=== PATIENT | female | born 1985 | race Caucasian/White ===

== ENCOUNTER 2019-09-26 12:52 | Inpatient (IN) | payer OTHER, SELFPAY ==
--- NOTE | ~2019-09-26 | XR_ITS ---
EXAMINATION: XR UGI water soluble w sbs DATE: 09/27/2019 15:54 INDICATION: Vomiting. Possible partial small bowel obstruction. TECHNIQUE: The patient drank water-soluble contrast. Conventional supine abdomen radiographs and fluo roscopic spot radiographs of the esophagus, stomach, and proximal small bowel were obtained. Addition al overhead radiographs were obtained during the transit through the small bowel. Spot fluoroscopic images of the small bowel were obtained upon contrast reaching the cecum. A total of 655 images were obtained. Fluoroscopy exposure time was 1.4 minutes. COMPARISON: None. FINDINGS: The esophagus is normal without mass or stricture. Esophageal motility is normal. There is no hiatal hernia. Postoperative changes of gastric bypass procedure with rapid passage of contrast from the eso phagus through the small gastric remnant into the Lovely limb with no evidence stricture. No extralumin al contrast extravasation. There was no gastroesophageal reflux. Transit time from the stomach to pro ximal colon was approximately 1 hour. There is normal caliber and mucosal fold pattern throughout the small bowel. Terminal ileum is normal. No tethering or abnormal mass effect observed upon the smal l bowel with real-time fluoroscopy. IMPRESSION: 1. Expected appearance post Lovely-en-Y gastric bypass procedure with no stricture at the anastomoses. 2. Normal small bowel follow-through with no obstruction. Reviewed, dictated and finalized at location A. ION CONTROL COORDINATOR IMPRESSION: 1. Expected appearance post Lovely-en-Y gastric bypass procedure with no strictur e at the anastomoses. 2. Normal small bowel follow-through with no obstruction.
[2019-09-26 13:00] VITALS: BMI 35.4
[2019-09-26 14:00] VITALS: BP 139/82; PULSE 82; RESP 14; TEMP 36.3; O2SAT 100
--- NOTE | 2019-09-26 14:20 | PM.IMHP ---
H&P: HPI History of Present Illness Chief complaint: intractable vomiting Narrative: Nava Brunson is a 34 year old female who was a direct admit from [facility]. Patient stated that she has had intractable nausea vomiting for at least 8 days. She has not traveled outside the country or been around any sick contacts. 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 Patient no longer has a gallbladder. She has had multiple kidney stones but states this feels different. She has had epigastric pain that is sharp and stabbing. It is intermittent in nature. She had been on pain medication [facility]. She was receiving IV fluids at [place]. Clear liquid diet was tried and patient continued to vomit bile. Under CT scan it showed a nonobstructing 3 mm left kidney stone and a right liver hemangioma. Patient still continued to vomit even though she was given Zofran, Pepcid, Protonix, and Reglan. Patient was also restarted back on Lexapro and the patient continued to vomit. It was felt that it would be best to hold off on giving her any more Lexapro until she is discharged. She does deal with depression and anxiety. Patient stated she is lost 7 lb in the last week due to her nausea and vomiting. She does have a history of having a gastric bypass, Lovely-en-Y at [facility] that was performed December of this year. She denies any diarrhea or fever or chills. Review of Systems Review of Systems: All systems reviewed & are unremarkable except as noted in HPI and below Constitutional: Constitutional: Reports as per HPI and Reports no additional constitutional complaints Eyes: Eyes: Reports as per HPI and Reports no additional eye complaints ENT: Reports system reviewed and no additional complaints, except as documented and Reports hearing normal Cardiovascular: Cardiovascular: Reports no additional cardiovascular complaints Respiratory: Respiratory: Reports no additional respiratory complaints and Reports no additional respiratory complaints Gastrointestinal: Gastrointestinal: Reports as per HPI, Reports abdominal pain (Epigastric), Reports bloating, Reports loose stools, Reports nausea and Reports vomiting Musculoskeletal: Musculoskeletal: Reports no additional musculoskeletal complaints Integumentary/Breasts: Skin/Breast: Reports system reviewed and no additional complaints, except as docu and Reports as per HPI Neurologic: Reports system reviewed and no additional complaints, except as documented, Reports as per HPI and Reports Normal hearing present Psychiatric: Psychiatric: Reports no additional psychiatric complaints and Reports as per HPI Endocrine: Endocrine: Reports no additional endocrine complaints Hematologic/Lymphatic: Hematologic/Lymphatic: Reports no additional hematologic/lymphatic complaints Allergic/Immunologic: Allergic/Immunologic: Reports no additional allergic/immunologic complaints [facility] Past Medical History Medical History (Updated 09/26/19 @ 14:47 by Heike Franklin NP) Anxiety (Acute) Carpal tunnel syndrome of right wrist (Resolved) Depression (Chronic) Diabetes (Resolved) PTSD (post-traumatic stress disorder) (Chronic) Sleep apnea (Resolved) Surgical History Surgical History (Updated 09/26/19 @ 14:27 by Heike Franklin NP) Gastric bypass status for obesity (Chronic ~12/2018) Lovely-en-Y at [facility] December this H/O: hysterectomy (Chronic ~2015) History of carpal tunnel surgery (Chronic ~2017) History of cholecystectomy (Chronic ~2009) History of release of tendon (Chronic ~2016) Bilateral Tendon/Ligament Release; Plantar Faschiotomy 2016 S/P tendon repair (Chronic ~2010) Left Middle Finger Tendon Repair 2010 Family History Family History Father Cerebrovascular accident Hypertension Mother Diabetes mellitus Hypertension Depression Anxiety Cerebrovascular accident Acute myocardial infarction
--- NOTE | 2019-09-26 14:32 | ADMGEN ---
This patient, Nava Brunson, was admitted to Medical Room 246-. Patient/family oriented to hospital policies and general routines including ID bracelet, bed and alarms, visiting hours, pain management, procedures, bathroom and other care routines, personal items, smoking policy, room service/diet, and visiting hours. Valuables list has been completed. Information on how to activate the Rapid Response Team has been discussed. Patient/Family are encouraged to report perceived risks to care and to ask questions if they do not understand what they are told or what they should do.
[2019-09-26 15:01] LABS: Basophils Percent Auto 0.3 % (0.2-1.2); Eosinophils Percent Auto 0.2 % (0-4.4); Hematocrit 41.8 % (37.0-47.0); Immature Granulocyte Absolute 0.03 K/mm3 (0.00-0.031); Immature Granulocyte Percent A 0.3 % (0-0.5); Lymphocytes Absolute Auto 2.15 K/mm3 (0.9-3.2); Lymphocytes Percent Auto 21.4 % (18.3-44.2); Mean Corpuscular HGB Conc 33.5 g/dl (32-36); Mean Corpuscular Volume 89.7 fl (80-100); Mean Platelet Volume 10.7 fl (7.4-10.4); Monocytes Absolute Auto 0.8 K/mm3 (0.1-0.6); Monocytes Percent Auto 8.2 % (2.6-8.5); Neutrophils Percent Auto 69.6 % (45.5-73.1); Platelet Count Result 254 k/mm3 (150-375); Red Blood Count 4.66 M/mm3 (4.2-5.4); Red Cell Distribution Width 12.2 % (11.5-14.5); White Blood Count 10.1 K/mm3 (4.5-10.0)
[2019-09-26 15:13] LABS: Magnesium 1.8 mg/dL (1.6-2.3)
[2019-09-26] MEDS: DEXTROSE 5%/0.45% SOD CHL 1,000 ML 100 ML IV CONT (15:41)
[2019-09-26] MEDS: HYDROMORPHONE HCL 1 MG/ML INJ 0.5 MG IV PUSH ×2 (15:42→19:10)
[2019-09-26 15:50] LABS: Thyroid Stimulating Hormone 0.368 uIU/mL (0.465-4.680)
--- NOTE | 2019-09-26 16:41 | WPDGICN ---
Assessment and Plan Assessment and plan (1) Intractable nausea and vomiting: Code(s): R11.2 - Nausea with vomiting, unspecified Status: Acute (2) Upper abdominal pain: Code(s): R10.10 - Upper abdominal pain, unspecified Status: Acute (3) History of cholecystectomy: Onset Date: ~2009 Code(s): Z90.49 - Acquired absence of other specified parts of digestive tract Status: Chronic (4) Anxiety: Code(s): F41.9 - Anxiety disorder, unspecified Status: Acute (5) Gastric bypass status for obesity: Onset Date: ~12/2018 Code(s): Z98.84 - Bariatric surgery status Status: Chronic Additional Plan Epigastric pain with nausea and vomiting and history of recent gastric bypass surgery all suggest etiology of pain in the residual stomach area. Agree with proton pump inhibitor via a IV access. An EGD will be performed to assess this area in the morning. Allowing patient trial of liquid diet appears prudent in the interval. Her liver tests are normal and she has previously had cholecystectomy therefore see no benefit to HIDA scan. We will follow with you during her hospital stay. Consult date/time: 09/26/19 16:41 HPI: Nava Brunson is a 34 year old female Seen in evaluation at the [facility]. Patient has a history of diabetes anxiety and depression and obesity. She underwent gastric bypass surgery at [facility] in December of 2018. Since that time has lost more than 50 lb. She her diabetes is improved. She did well until Monday 5 days ago. When she abruptly began to have episodes of nausea and vomiting. She states she has not been able to keep food down since that time. She reports having lost perhaps 7 lb over the last 5 or 6 days. She also notes epigastric discomfort that has been persistent. On Monday she was admitted dosed on hospital. And has continued to have pain and vomiting despite IV fluids and therapy. She has been on proton pump inhibitor since that time. A CT scan and ultrasound have been performed and are essentially unremarkable. Patient denies a fever. She denies jaundice. Past history as stated is significant for obesity and recent surgery. She has been treated for anxiety and depression. She is no longer on medications for diabetes. She describes her epigastric pain as a squeezing pain that intensifies from time to time. Patient has a distant history of cholecystectomy. Review of Systems Review of Systems: All systems reviewed & are unremarkable except as noted in HPI and below PMFSH Past Medical History Medical History Anxiety (Acute) Carpal tunnel syndrome of right wrist (Resolved) Depression (Chronic) Diabetes (Resolved) PTSD (post-traumatic stress disorder) (Chronic) Sleep apnea (Resolved) Surgical History Surgical History Gastric bypass status for obesity (Chronic ~12/2018) Lovely-en-Y at [facility] December of this H/O: hysterectomy (Chronic ~2015) History of carpal tunnel surgery (Chronic ~2017) History of cholecystectomy (Chronic ~2009) History of release of tendon (Chronic ~2016) Bilateral Tendon/Ligament Release; Plantar Faschiotomy 2017 S/P tendon repair (Chronic ~2010) Left Middle Finger Tendon Repair 2010 Family History Family History Father Cerebrovascular accident Hypertension Mother Diabetes mellitus Hypertension Depression Anxiety Cerebrovascular accident Acute myocardial infarction Sibling Diabetes mellitus Hypertension Kidney disease Grandparent Diabetes mellitus Social History Social History Social History: Lives with transgender Chloe. Chloe is her durable power state attorney for healthcare. The patient does need herself as a full code. Years smok
[2019-09-26] MEDS: METOCLOPRAMIDE HCL INJ 10 MG/2 ML VIAL IV PUSH (17:24)
[2019-09-26] MEDS: LORAZEPAM INJ 2 MG/ML VIAL 0.5 MG IV PUSH (21:05)
[2019-09-26] MEDS: PROMETHAZINE HCL 25 MG SUPP.RECT RECTAL (21:09)
[2019-09-26 22:00] VITALS: BP 116/66; PULSE 63; RESP 18; TEMP 36; O2SAT 98
[2019-09-27] VITALS (8 sets, daily range): BP systolic 90–140; BP diastolic 54–88; PULSE 66–85; RESP 16–20; TEMP 36.1–36.7; O2SAT 94–100
[2019-09-27] MEDS: DEXTROSE 5%/0.45% SOD CHL 1,000 ML 100 ML IV CONT ×2 (02:19→18:25)
[2019-09-27] MEDS: HYDROMORPHONE HCL 1 MG/ML INJ 0.5 MG IV PUSH ×7 (02:20→23:38)
[2019-09-27] MEDS: METOCLOPRAMIDE HCL INJ 10 MG/2 ML VIAL IV PUSH ×4 (02:20→23:38)
[2019-09-27 05:56] LABS: Basophils Percent Auto 0.4 % (0.2-1.2); Eosinophils Absolute Auto 0.1 K/mm3 (0-0.3); Hematocrit 38.1 % (37.0-47.0); Hemoglobin 12.5 g/dL (12.0-15.0); Immature Granulocyte Absolute 0.03 K/mm3 (0.00-0.031); Immature Granulocyte Percent A 0.3 % (0-0.5); Lymphocytes Absolute Auto 2.69 K/mm3 (0.9-3.2); Lymphocytes Percent Auto 29.6 % (18.3-44.2); Mean Corpuscular HGB Conc 32.8 g/dl (32-36); Mean Corpuscular Hemoglobin 29.3 pg (26-34); Mean Corpuscular Volume 89.2 fl (80-100); Mean Platelet Volume 10.7 fl (7.4-10.4); Monocytes Absolute Auto 0.9 K/mm3 (0.1-0.6); Monocytes Percent Auto 10.2 % (2.6-8.5); Neutrophils Absolute Auto 5.3 K/mm3 (1.3-6.7); Neutrophils Percent Auto 58.5 % (45.5-73.1); Platelet Count Result 235 k/mm3 (150-375); Red Blood Count 4.27 M/mm3 (4.2-5.4); Red Cell Distribution Width 12.2 % (11.5-14.5); White Blood Count 9.1 K/mm3 (4.5-10.0)
[2019-09-27 06:08] LABS: Blood Urea Nitrogen 5 mg/dL (7-17); Calcium 8.6 mg/dL (8.4-10.2); Carbon Dioxide 32 mmol/L (22-30); Chloride 100 mmol/L (98-107); Estimated CRCL calculation 172 ml/min; Estimated Glomerular Filt Rate > 60; Glucose 84 mg/dL (65-105); Sodium 136 mmol/L (137-145)
[2019-09-27 10:56] LABS: Add Urine Microscopic? YES; Appearance Urine Clear (Clear); Bacteria Urine 1+ /hpf; Bilirubin Urine Negative (Negative); Blood Urine 1+ (Negative); Color Urine Straw (Yellow); Glucose Urine UA Negative (Negative); Ketones Urine Negative (Negative); Leukocyte Esterase Ur Negative LEU/UL (Negative); Mucus Urine Rare /lpf; Nitrate Urine Negative (Negative); Protein Urine Negative (Negative); RBC Urine 0-2 /hpf (0-2); Specific Grav Ur 1.004 (1.001-1.035); Squamous Epithelial Cell Urine Few /hpf (Few); WBC Urine 0-3
--- NOTE | 2019-09-27 11:00 | PC.NURSE ---
Patient to GI lab via wheelchair. IV intact.
--- NOTE | 2019-09-27 11:21 | WPDANESEPPF ---
Anes - Initial Pre Proc Eval Procedure: Operation Date: 09/27/19 11:30 Proposed Procedures p Esophagogastroduodenoscopy - Travis Flores MD Date/Time: 09/27/19 11:21 Surgeon: Eran Kaye MD Pre Op Diagnosis: intractable vomiting Patient Data Age: 34 Gender: F Height: 5 ft 3 in Weight: 90.6 kg Last Vital Signs Temp 36.7 C 09/27/19 11:16 Pulse 67 09/27/19 11:16 Resp 16 09/27/19 11:16 BP 106/60 09/27/19 11:16 Pulse Ox 95 09/27/19 11:16 Allergies Allergy/AdvReac Type Severity Reaction Status Date / Time Fish Containing Products Allergy Severe Anaphylactic Verified 09/27/19 11:09 Shock shellfish derived Allergy Severe Anaphylactic Verified 09/27/19 11:09 Shock ciprofloxacin Allergy Intermediate Hives Verified 09/27/19 11:09 fluoxetine Allergy Intermediate Hives Verified 09/27/19 11:09 morphine Allergy Intermediate Hives Verified 09/27/19 11:09 ceftriaxone Allergy Unknown HIVES Verified 09/27/19 11:09 ketorolac Allergy Unknown Rash Verified 09/27/19 11:09 NSAIDS (Non-Steroidal AdvReac Mild Other Verified 09/27/19 11:09 Anti-Inflamma Home Medications Medication Instructions Recorded Confirmed Type lorazepam 1 mg PO DAILY PRN 09/24/19 09/26/19 History omeprazole 40 mg PO DAILY 09/24/19 09/26/19 History calcium carbonate [Calcium 600] 600 mg PO DAILY 09/26/19 09/26/19 History escitalopram oxalate [Lexapro] 10 mg PO DAILY 09/26/19 09/26/19 History pediatric multivitamin no.28 1 tablet PO DAILY 09/26/19 09/26/19 History [Child Multivitamins] Laboratory Tests 09/26/19 09/26/19 09/26/19 14:55 14:55 14:55 WBC 10.1 K/mm3 H K/mm3 (4.5-10.0) RBC 4.66 M/mm3 M/mm3 (4.2-5.4) Hgb 14.0 g/dL g/dL (12.0-15.0) Hct 41.8 % % (37.0-47.0) MCV 89.7 fl fl (80-100) MCH 30.0 pg pg (26-34) MCHC 33.5 g/dl g/dl (32-36) RDW 12.2 % % (11.5-14.5) Plt Count 254 k/mm3 k/mm3 (150-375) MPV 10.7 fl H fl (7.4-10.4) Immature Gran % (Auto) 0.3 % % (0-0.5) Neut % (Auto) 69.6 % % (45.5-73.1) Lymph % (Auto) 21.4 % % (18.3-44.2) [place] % (Auto) 8.2 % % (2.6-8.5) Eos % (Auto) 0.2 % % (0-4.4) Baso % (Auto) 0.3 % % (0.2-1.2) Lymph # (Auto) 2.15 K/mm3 K/mm3 (0.9-3.2) [place] # (Auto) 0.8 K/mm3 H K/mm3 (0.1-0.6) Eos # (Auto) 0.0 K/mm3 K/mm3 (0-0.3) Baso # (Auto) 0.0 K/mm3 K/mm3 (0.0-0.1) Abs Immat Gran (auto) 0.03 K/mm3 K/mm3 (0.00-0.031) Absolute Neuts (auto) 7.0 K/mm3 H K/mm3 (1.3-6.7) Absolute Nucleated RBC 0.0 K/mm3 K/mm3 (0.0-0.012) Nucleated RBC % 0.0 % % (0.0-0.2) Sodium Potassium Chloride Carbon Dioxide BUN Creatinine Estim Creat Clear Calc Estimated GFR Glucose Calcium Magnesium 1.8 mg/dL mg/dL (1.6-2.3) TSH 0.368 uIU/mL L uIU/mL (0.465-4.680) Urine Color Urine Appearance Urine pH Ur Specific Clune Urine Protein Urine Glucose (UA) Urine Ketones Ur Blood (Man) Urine Nitrate Urine Bilirubin Urine Urobilinogen Leukocyte Esterase Rfl Urine RBC Urine WBC Ur Squamous Epith Cells Urine Bacteria Urine Mucus 09/27/19 09/27/19 09/27/19 05:24 05:24 10:45 WBC 9.1 K/mm3 K/mm3 (4.5-10.0) RBC 4.27 M/mm3 M/mm3 (4.2-5.4) Hgb 12.5 g/dL g/dL (12.0-15.0) Hct 38.1 % % (37.0-47.0) MCV 89.2 fl fl (80-100) MCH 29.3 pg pg (26-34) MCHC 32.8 g/dl g/dl (32-36) RDW 12.2 % % (11.5-14.5) Plt C
[2019-09-27] MEDS: LACTATED RINGERS 1,000 ML 150 ML IV CONT (11:25)
[2019-09-27] MEDS: BENZOCAINE (*SP) 60 ML SPRAY CAN (HURRICAINE) 1 SPRAY MUCOUS MEM (12:37)
--- NOTE | 2019-09-27 13:36 | PC.NURSE ---
Patient returned from GI lab via stretcher.
--- NOTE | 2019-09-27 15:55 | PM.IMPN ---
Progress Note: A&P Assessment and Plan (1) Intractable nausea and vomiting: Code(s): R11.2 - Nausea with vomiting, unspecified Status: Acute Assessment and Plan: The patient has tried a multitude of different anti nausea medication. She stated that Zofran does not work for her. Further recommendations per GI specialist. Pt is sp EGD see full results for details (2) Upper abdominal pain: Code(s): R10.10 - Upper abdominal pain, unspecified Status: Acute Assessment and Plan: The patient has already had a CT her abdomen which shows a hemangioma and a 3 mm left renal stone. She is not have any NSAIDs due to her gastric bypass (3) Anxiety: Code(s): F41.9 - Anxiety disorder, unspecified Status: Acute Assessment and Plan: IV Ativan. The patient tried oral Lexapro and vomited yesterday. We can hold off on any Lexapro until she is discharged. (4) Depression: Code(s): F32.9 - Major depressive disorder, single episode, unspecified Status: Chronic Assessment and Plan: Restart Lexapro on dischrage Subjective Interval history: Nava Brunson is a 34 year old female who was a direct admit from [facility]. Patient stated that she has had intractable nausea vomiting for at least 8 days. Pt has history of Gastric bypass status for obesity (Chronic ~12/2018) Lovely-en-Y at [facility] December of this [id number]. Pt had Egd today, pt to continue with iV reglan today Review of Systems Review of Systems: All systems reviewed & are unremarkable except as noted in HPI and below Exam Chest: Chest palpation & inspection: normal inspection of the chest Resp: Effort & Inspection: normal respiratory effort Auscultation: clear to auscultation bilaterally Percussion: percussion normal Cardio: Palpation: normal PMI Rate: regular rate Rhythm: regular rhythm Heart sounds: S1 normal and S2 normal Peripheral pulses: pulses 2+ throughout Skin: General skin exam: normal color Lesions: no lesions Rashes: no rashes Trauma: no lacerations or abrasions Wounds: no wounds Hair: normal Nails: normal Neuro: General: oriented to person, oriented to place, oriented to time and oriented x3 Cranial nerves: Yes PERRL and Yes hearing normal Cognition (Neuro): normal cognition Speech: normal speech Gait exam (Neuro): normal gait Motor exam (neuro): strength 5/5 throughout Sensory Exam: normal sensation Extrem: General: normal to inspection Right upper extremity: normal to inspection and shoulder/upper arm Left upper extremity: normal to inspection and shoulder/upper arm Right lower extremity: normal to inspection Left lower extremity: normal to inspection Psych: Affect: blunted Other: mild depression Objective Data Vital Signs Vital Signs: Vital Signs - 24 hr 09/26/19 22:00 09/27/19 06:00 09/27/19 08:00 Temperature 36.0 C L 36.6 C Pulse Rate 63 80 67 Respiratory Rate 18 18 16 Blood Pressure 116/66 90/54 L Pulse Oximetry 98 94 L 95 09/27/19 11:16 09/27/19 12:42 09/27/19 12:52 Temperature 36.7 C Pulse Rate 67 70 84 Respiratory Rate 16 18 20 Blood Pressure 106/60 117/76 119/74 Pulse Oximetry 95 98 96 09/27/19 13:02 Temperature Pulse Rate 79 Respiratory Rate 18 Blood Pressure 120/72 Pulse Oximetry 97 Intake/Output Intake/Output: Intake & Output 09/24/19 09/25/19 09/26/19 09/27/19 23:59 23:59 23:59 23:59 Intake Total 560 1300 Output Total 200 Balance 560 1100 Meds/Results Medications: Active Medications Generic Name Dose Route Start Last Admin Trade Name Freq PRN Reason Stop Dose Admin Hydromorphone HCl 0.5 mg 09/26/19 14:32 09/27/19 13:49 Dilaudid Inj IV PUSH 0.5 mg Q3H PRN Administration Pain Rated 7-10 Dextrose/Sodium Chloride 1,000 mls @ 100 mls/hr 09/26/19 14:30 09/27/19 13:52 Dextrose 5% Sodium Chloride 0.45% IV CONT 0 mls/hr .Q10H NATE Infusion Lorazepam 0.5 mg 09/07
[2019-09-27] MEDS: LORAZEPAM INJ 2 MG/ML VIAL 0.5 MG IV PUSH (23:39)
[2019-09-28] MEDS: DEXTROSE 5%/0.45% SOD CHL 1,000 ML 100 ML IV CONT ×2 (04:51→16:32)
[2019-09-28] MEDS: HYDROMORPHONE HCL 1 MG/ML INJ 0.5 MG IV PUSH ×4 (04:52→16:33)
[2019-09-28] MEDS: METOCLOPRAMIDE HCL INJ 10 MG/2 ML VIAL IV PUSH ×3 (04:55→17:51)
[2019-09-28 05:55] VITALS: BP 97/55; PULSE 74; RESP 20; TEMP 36.1; O2SAT 98
[2019-09-28 06:38] LABS: Blood Urea Nitrogen 4 mg/dL (7-17); Calcium 8.5 mg/dL (8.4-10.2); Carbon Dioxide 29 mmol/L (22-30); Chloride 101 mmol/L (98-107); Estimated CRCL calculation 172 ml/min; Estimated Glomerular Filt Rate > 60; Glucose 85 mg/dL (65-105); Potassium 3.1 mmol/L (3.4-5.0); Sodium 136 mmol/L (137-145)
--- NOTE | 2019-09-28 08:31 | WPDGIPROGNO ---
Progress Note: A&P Assessment and Plan (1) Intractable nausea and vomiting: Code(s): R11.2 - Nausea with vomiting, unspecified Status: Acute (2) Upper abdominal pain: Code(s): R10.10 - Upper abdominal pain, unspecified Status: Acute (3) Gastric bypass status for obesity: Onset Date: ~12/2018 Code(s): Z98.84 - Bariatric surgery status Status: Chronic Additional Plan Patient reports marked improvement. She is tolerating liquids without difficulty. EGD was unremarkable aside from recent gastric bypass surgery. Small-bowel follow-through confirms good healing to gastric bypass and no obstruction. Plan is to advance to regular diet and discharge if diet tolerated. I would advise continuing on oral Reglan for a brief interval of time. Subjective Interval history: Patient feels good this morning. She tolerated liquids with no problem. She has not required Zofran since admission. Gastrografin small-bowel series reveals no obstruction. Recent gastric surgery appears healed well. Patient in good spirits denies pain wishes to advance to regular diet. Exam Narrative: Exam Narrative: Alert. Vital signs stable. HEENT exam unremarkable. Lungs are clear to auscultation and percussion. Heart is without murmur or extra sounds. Abdominal exam with normal bowel sounds. Abdomen is soft nontender with no organomegaly. Objective Data Vital Signs Vital Signs: Vital Signs - 24 hr 09/27/19 11:16 09/27/19 12:42 09/27/19 12:52 Temperature 36.7 C Pulse Rate 67 70 84 Respiratory Rate 16 18 20 Blood Pressure 106/60 117/76 119/74 Pulse Oximetry 95 98 96 09/27/19 13:02 09/27/19 16:00 09/27/19 21:47 Temperature 36.1 C L 36.1 C L Pulse Rate 79 85 66 Respiratory Rate 18 16 20 Blood Pressure 120/72 140/74 121/88 Pulse Oximetry 97 99 100 09/28/19 05:55 Temperature 36.1 C L Pulse Rate 74 Respiratory Rate 20 Blood Pressure 97/55 L Pulse Oximetry 98 Intake/Output Intake/Output: Intake & Output 09/25/19 09/26/19 09/27/19 09/28/19 23:59 23:59 23:59 23:59 Intake Total 560 2980 1120 Output Total 2400 400 Balance 560 580 720 Meds/Results Medications: Active Medications Generic Name Dose Route Start Last Admin Trade Name Freq PRN Reason Stop Dose Admin Hydromorphone HCl 0.5 mg 09/26/19 14:32 09/28/19 08:30 Dilaudid Inj IV PUSH 0.5 mg Q3H PRN Administration Pain Rated 7-10 Dextrose/Sodium Chloride 1,000 mls @ 100 mls/hr 09/26/19 14:30 09/28/19 04:51 Dextrose 5% Sodium Chloride 0.45% IV CONT 100 mls/hr .Q10H NATE Administration Lorazepam 0.5 mg 09/26/19 14:32 09/27/19 23:39 Ativan IV PUSH 0.5 mg Q6H PRN Administration Anxiety Metoclopramide HCl 10 mg 09/27/19 18:00 09/28/19 04:55 Reglan IV PUSH 10 mg Q6HR NATE Administration Radiology Results: ITS Impressions Upper GI Series 09/27/19 16:05 IMPRESSION: 1. Expected appearance post Lovely-en-Y gastric bypass procedure with no stricture at the anastomoses. 2. Normal small bowel follow-through with no obstruction. Labs Labs: Laboratory Results - last 24 hr 09/27/19 09/28/19 10:45 05:54 Sodium 136 L Potassium 3.1 L Chloride 101 Carbon Dioxide 29 BUN 4 L Creatinine 0.40 L Estim Creat Clear Calc 172 Estimated GFR > 60 Glucose 85 Calcium 8.5 Urine Color Straw Urine Appearance Clear Urine pH 8.0 Ur Specific [place] 1.004 Urine Protein Negative Urine Glucose (UA) Negative Urine Ketones Negative Ur Blood (Man) 1+ H Urine Nitrate Negative Urine Bilirubin Negative Urine Urobilinogen 4.0 H Leukocyte Esterase Rfl Negative Urine RBC 0-2 Urine WBC 0-3 Ur Squamous Epith Cells Few Urine Bacteria 1+ H Urine Mucus Rare
--- NOTE | 2019-09-28 13:01 | PM.IMPN ---
Progress Note: A&P Assessment and Plan (1) Intractable nausea and vomiting: Code(s): R11.2 - Nausea with vomiting, unspecified Status: Acute Assessment and Plan: The patient has tried a multitude of different anti nausea medication. She stated that Zofran does not work for her. EGD nil of note. Pt to continue on Iv reglan. Until she can tolerate a diet (2) Upper abdominal pain: Code(s): R10.10 - Upper abdominal pain, unspecified Status: Acute Assessment and Plan: The patient has already had a CT her abdomen which shows a hemangioma and a 3 mm left renal stone. She is not have any NSAIDs due to her gastric bypass (3) Anxiety: Code(s): F41.9 - Anxiety disorder, unspecified Status: Acute Assessment and Plan: IV Ativan. The patient tried oral Lexapro and vomited yesterday. We can hold off on any Lexapro until she is discharged. (4) Depression: Code(s): F32.9 - Major depressive disorder, single episode, unspecified Status: Chronic Assessment and Plan: Restart Lexapro on discharge. continue ativan Subjective Interval history: Nava Brunson is a 34 year old female who was a direct admit from [facility]. Patient stated that she has had intractable nausea vomiting for at least 8 days. Pt has history of Gastric bypass status for obesity (Chronic ~12/2018) Lovely-en-Y at [facility] December of this [id number]. Pt had EGD yesterday,which was negative. Pt to continue with iV reglan today, discharge tomorrow when she is tolerating a diet Review of Systems Review of Systems: All systems reviewed & are unremarkable except as noted in HPI and below Constitutional: Constitutional: Reports as per HPI and Reports no additional constitutional complaints Eyes: Eyes: Reports as per HPI and Reports no additional eye complaints ENT: Reports system reviewed and no additional complaints, except as documented and Reports hearing normal Cardiovascular: Cardiovascular: Reports no additional cardiovascular complaints Respiratory: Respiratory: Reports no additional respiratory complaints and Reports no additional respiratory complaints Gastrointestinal: Gastrointestinal: Reports as per HPI, Reports abdominal pain (Epigastric), Reports bloating, Reports loose stools, Reports nausea and Reports vomiting Musculoskeletal: Musculoskeletal: Reports no additional musculoskeletal complaints Integumentary/Breasts: Skin/Breast: Reports system reviewed and no additional complaints, except as docu and Reports as per HPI Neurologic: Reports system reviewed and no additional complaints, except as documented, Reports as per HPI and Reports Normal hearing present Psychiatric: Psychiatric: Reports no additional psychiatric complaints and Reports as per HPI Endocrine: Endocrine: Reports no additional endocrine complaints Hematologic/Lymphatic: Hematologic/Lymphatic: Reports no additional hematologic/lymphatic complaints Allergic/Immunologic: Allergic/Immunologic: Reports no additional allergic/immunologic complaints Exam Const: General: cooperative, healthy appearing, comfortable, no acute distress, well developed, awake and active Nutritional Appearance: average body habitus and well nourished Orientation/consciousness: oriented to person, oriented to place, oriented to time and oriented x3 Limitations: no limitations Chest: Chest palpation & inspection: normal inspection of the chest Resp: Effort & Inspection: normal respiratory effort Auscultation: clear to auscultation bilaterally Percussion: percussion normal Cardio: Palpation: normal PMI Rate: regular rate Rhythm: regular rhythm Heart sounds: S1 normal and S2 normal Peripheral pulses: pulses 2+ throughout GI: Inspection: normal to inspection Palpation (GI): Yes abdominal tenderness (Epigastric area) Percussion: normal to percussion Auscultation: abnormal bowel sounds (Hypo) Rectal Exam: deferred Back/Spin
[2019-09-28 15:00] VITALS: BP 117/75; PULSE 90; RESP 16; TEMP 36.2; O2SAT 100
[2019-09-28] MEDS: ACETAMINOPHEN 325 MG TABLET 650 MG PO (17:50)
[2019-09-28] MEDS: LORAZEPAM INJ 2 MG/ML VIAL 0.5 MG IV PUSH (20:36)
[2019-09-28 22:00] VITALS: BP 113/59; PULSE 72; RESP 21; TEMP 36.2; O2SAT 100
[2019-09-29] MEDS: METOCLOPRAMIDE HCL INJ 10 MG/2 ML VIAL IV PUSH ×3 (00:34→11:54)
[2019-09-29] MEDS: DEXTROSE 5%/0.45% SOD CHL 1,000 ML 100 ML IV CONT (05:36)
[2019-09-29 06:00] VITALS: BP 108/65; PULSE 66; RESP 20; TEMP 36.6; O2SAT 98
[2019-09-29 06:40] LABS: Blood Urea Nitrogen 6 mg/dL (7-17); Calcium 8.4 mg/dL (8.4-10.2); Carbon Dioxide 29 mmol/L (22-30); Chloride 103 mmol/L (98-107); Estimated CRCL calculation 172 ml/min; Estimated Glomerular Filt Rate > 60; Glucose 87 mg/dL (65-105); Potassium 3.3 mmol/L (3.4-5.0); Sodium 138 mmol/L (137-145)
[2019-09-29 07:42] LABS: Hematocrit 39.2 % (37.0-47.0); Hemoglobin 13.1 g/dL (12.0-15.0); Mean Corpuscular HGB Conc 33.4 g/dl (32-36); Mean Corpuscular Volume 89.9 fl (80-100); Mean Platelet Volume 11.6 fl (7.4-10.4); Platelet Count Result 271 k/mm3 (150-375); Red Blood Count 4.36 M/mm3 (4.2-5.4); Red Cell Distribution Width 12.5 % (11.5-14.5); White Blood Count 9.5 K/mm3 (4.5-10.0)
--- NOTE | 2019-09-29 08:15 | WPDGIPROGNO ---
Progress Note: A&P Assessment and Plan (1) Intractable nausea and vomiting: Code(s): R11.2 - Nausea with vomiting, unspecified Status: Acute (2) Gastric bypass status for obesity: Onset Date: ~12/2018 Code(s): Z98.84 - Bariatric surgery status Status: Chronic Additional Plan pt states symptoms have resolved, feels great, tolerated diet, no pain, plan for discharge today on her post gastric bypass diet, follow up with me only as needed Subjective Interval history: pt feels good, tolerated diet, no pain, no nausea Exam Narrative: Exam Narrative: alert, VSS abdomen benign, resolved complaints Objective Data Vital Signs Vital Signs: Vital Signs - 24 hr 09/28/19 15:00 09/28/19 22:00 09/29/19 06:00 Temperature 36.2 C L 36.2 C L 36.6 C Pulse Rate 90 72 66 Respiratory Rate 16 21 H 20 Blood Pressure 117/75 113/59 L 108/65 Pulse Oximetry 100 100 98 Intake/Output Intake/Output: Intake & Output 09/26/19 09/27/19 09/28/19 09/29/19 23:59 23:59 23:59 23:59 Intake Total 560 2980 3807 1930 Output Total 2400 2450 1500 Balance 538 500 3717 430 Meds/Results Medications: Active Medications Generic Name Dose Route Start Last Admin Trade Name Freq PRN Reason Stop Dose Admin Acetaminophen 650 mg 09/28/19 16:38 09/28/19 17:50 Tylenol Tablet PO 650 mg Q8H PRN Administration Mild Pain (1-3) or Fever Hydrocodone Bitart/Acetaminophen 1 tab 09/28/19 20:06 09/29/19 05:36 [place] 5-325 Mg PO 1 tab Q4H PRN Administration Pain Rated 4-6 Dextrose/Sodium Chloride 1,000 mls @ 100 mls/hr 09/26/19 14:30 09/29/19 05:37 Dextrose 5% Sodium Chloride 0.45% IV CONT 100 mls/hr .Q10H NATE Infusion Lorazepam 0.5 mg 09/26/19 14:32 09/28/19 20:36 Ativan IV PUSH 0.5 mg Q6H PRN Administration Anxiety Metoclopramide HCl 10 mg 09/27/19 18:00 09/29/19 05:36 Reglan IV PUSH 10 mg Q6HR NATE Administration Metoclopramide HCl 5 mg 09/28/19 08:34 Reglan PO ACHS PRN Nausea And Vomiting Radiology Results: ITS Impressions Upper GI Series 09/27/19 16:05 IMPRESSION: 1. Expected appearance post Lovely-en-Y gastric bypass procedure with no stricture at the anastomoses. 2. Normal small bowel follow-through with no obstruction. Labs Labs: Laboratory Results - last 24 hr 09/29/19 09/29/19 05:39 05:39 WBC 9.5 RBC 4.36 Hgb 13.1 Hct 39.2 MCV 89.9 MCH 30.0 MCHC 33.4 RDW 12.5 Plt Count 271 MPV 11.6 H Sodium 138 Potassium 3.3 L Chloride 103 Carbon Dioxide 29 BUN 6 L Creatinine 0.40 L Estim Creat Clear Calc 172 Estimated GFR > 60 Glucose 87 Calcium 8.4
--- NOTE | 2019-09-29 12:19 | PM.DS ---
DS: Diagnosis Admitting Diagnosis Admitting Diagnosis: DOS: 09/29/2019 Nausea with vomiting, unspecified Discharge Diagnosis (1) Intractable nausea and vomiting: Code(s): R11.2 - Nausea with vomiting, unspecified Status: Acute Assessment and Plan: The patient has tried a multitude of different anti nausea medication. She stated that Zofran does not work for her. EGD done in the hospital showed nil of note. Pt to continued on Iv reglan in hospital. Pt to continue with reglan at home up to tid times a day with meals. Pt tolerating a diet, able to be discharged. Pt to continue on post gastric bypass diet. (2) Upper abdominal pain: Code(s): R10.10 - Upper abdominal pain, unspecified Status: Acute Assessment and Plan: The patient has already had a CT her abdomen which shows a hemangioma and a 3 mm left renal stone. She is not have any NSAIDs due to her gastric bypass. Pt to follow her hemangioma and a 3 mm left renal stone with a PCP doctor. (3) Anxiety: Code(s): F41.9 - Anxiety disorder, unspecified Status: Acute Assessment and Plan: Pt restated on lexapro on discharge to follow this with her PCP (4) Depression: Code(s): F32.9 - Major depressive disorder, single episode, unspecified Status: Chronic Assessment and Plan: Restart Lexapro on discharge to follow this with her PCP. DS: Summary Time Spent with Patient Time attestation: Total time spent providing and/or coordinating discharge services:40 minutes on day of discharge Exam Const: General: cooperative, healthy appearing, comfortable, no acute distress, well developed, awake and active Nutritional Appearance: average body habitus and well nourished Orientation/consciousness: oriented to person, oriented to place, oriented to time and oriented x3 Limitations: no limitations Chest: Chest palpation & inspection: normal inspection of the chest Resp: Effort & Inspection: normal respiratory effort Auscultation: clear to auscultation bilaterally Percussion: percussion normal Cardio: Palpation: normal PMI Rate: regular rate Rhythm: regular rhythm Heart sounds: S1 normal and S2 normal Peripheral pulses: pulses 2+ throughout GI: Inspection: normal to inspection Palpation (GI): No abdominal tenderness Percussion: normal to percussion Auscultation: abnormal bowel sounds (Hypo) Rectal Exam: deferred Back/Spine/Pelvis: Back: no CVA tenderness Cervical Spine: cervical ROM normal Thoracic/Lumbar Spine: thoracic and lumbar spine normal to inspection Pelvis: no pain with anterior-posterior compression Skin: General skin exam: normal color Lesions: no lesions Rashes: no rashes Trauma: no lacerations or abrasions Wounds: no wounds Hair: normal Nails: normal Neuro: General: oriented to person, oriented to place, oriented to time and oriented x3 Cranial nerves: Yes PERRL and Yes hearing normal Cognition (Neuro): normal cognition Speech: normal speech Gait exam (Neuro): normal gait Motor exam (neuro): strength 5/5 throughout Sensory Exam: normal sensation Extrem: General: normal to inspection Right upper extremity: normal to inspection and shoulder/upper arm Left upper extremity: normal to inspection and shoulder/upper arm Right lower extremity: normal to inspection Left lower extremity: normal to inspection Psych: Appearance: grossly normal Mental Status: mental status grossly normal Speech and movement: speech and movement normal Affect: blunted Attitude: cooperative Thought process: normal thought process Insight: insight good Judgement: judgment good DS: Data Data Completed and Pending Labs on day of discharge: Labs from last 24 hours 09/29/19 09/29/19 05:39 05:39 WBC 9.5 RBC 4.36 Hgb 13.1 Hct 39.2 MCV 89.9 MCH 30.0 MCHC 33.4 RDW 12.5 Plt Count 271 MPV 11.6 H Sodium 138 Potassium 3.3 L Chloride 103 Carbon Dioxide 29 BUN 6 L Creati
== END 2019-09-29 13:05 | disposition home or self-care (01) | DRG 249 ==
PROVIDERS: Internal Medicine Gastroenterology; Nurse Practitioner; Admitting Provider Internal Medicine; Visit Provider Family Medicine
PROC: 0DJ08ZZ Inspection of Upper Intestinal Tract, Via Natural or Artificial Opening Endoscopic (ICD-10-PCS; CPT 43235; principal; 2019-09-27 11:30)
DX: R11.2 Nausea with vomiting, unspecified (principal); R10.10 Upper abdominal pain, unspecified; F41.9 Anxiety disorder, unspecified; F32.9 Major depressive disorder, single episode, unspecified; Z98.84 Bariatric surgery status; E66.9 Obesity, unspecified; Z68.35 Body mass index [BMI] 35.0-35.9, adult
CPT/HCPCS: 36415; 74245; 80048; 81001; 83735; 84443; 85025; 85027; A9270; J1170; J2060; J2704; J2765; J7120

== ENCOUNTER 2020-06-02 13:43 | Emergency (ER) | payer OTHER, MEDICAID, SELFPAY ==
[2020-06-02 13:45] VITALS: BP 133/88; PULSE 77; RESP 18; TEMP 36.8; O2SAT 96
--- NOTE | 2020-06-02 14:14 | ED.SKABFB ---
HPI - Skin/Abscess/Foreign Bdy General Chief complaint: Skin/Abscess/Foreign Body Stated complaint: infected bug bite right upper arm Time Seen by Provider: 06/02/20 14:14 Source: patient Mode of arrival: ambulatory Limitations: no limitations History of Present Illness HPI narrative: 35-year-old woman comes in today complaining of a painful lesion on her right upper arm that she noticed yesterday after having been camping. Patient states that the pain is getting worse and she has spreading redness around the lesion. She states that she had a fever of 101 overnight. Patient is also being treated for a kidney stone and is not on any antibiotics. she denies finding attached ticks. complaint: abscess/boil Onset (ago): day(s) (1-2) Location: RUE Severity scale (1-10): 7 Quality: sharp Pain Consistency: constant Relieving factors: none Exacerbating factors: palpation Context: none Associated symptoms: fever Related Data Home Medications Medication Instructions Recorded Confirmed lorazepam 1 mg PO DAILY PRN 09/24/19 06/02/20 Child Multivitamins 1 tablet PO DAILY 09/26/19 06/02/20 escitalopram oxalate [Lexapro] 20 mg PO DAILY 09/26/19 06/02/20 mecobalamin (vitamin B12) 2,000 mcg SUBLINGUAL DAILY 10/31/19 06/02/20 gabapentin 100 mg PO TID 06/02/20 06/02/20 hydrocodone-acetaminophen 1 tablet PO Q4-6H PRN 06/02/20 06/02/20 prazosin 2 mg PO DAILY 06/02/20 06/02/20 sumatriptan succinate 25 mg PO PRN 06/02/20 06/02/20 Allergies Allergy/AdvReac Type Severity Reaction Status Date / Time Fish Containing Products Allergy Severe Anaphylactic Verified 06/02/20 14:18 Shock shellfish derived Allergy Severe Anaphylactic Verified 06/02/20 14:18 Shock ciprofloxacin Allergy Intermediate Hives Verified 06/02/20 14:18 fluoxetine Allergy Intermediate Hives Verified 06/02/20 14:18 morphine Allergy Intermediate Hives Verified 06/02/20 14:18 ceftriaxone Allergy Unknown HIVES Verified 06/02/20 14:18 ketorolac Allergy Unknown Rash Verified 06/02/20 14:18 iohexol Allergy Hives Verified 06/02/20 14:18 [From CONTRAST - CT, XRAY] NSAIDS (Non-Steroidal AdvReac Mild Other Verified 06/02/20 14:18 Anti-Inflamma Review of Systems Constitutional: Constitutional: Denies chills, Denies fatigue and Reports fever(s) ENT: Denies dysphagia, Denies nasal congestion and Denies sore throat Cardiovascular: Cardiovascular: Denies chest pain and Denies radiating jaw, neck or arm pain Respiratory: Respiratory: Denies chest congestion and Denies cough Gastrointestinal: Gastrointestinal: Reports as per HPI, Reports abdominal pain, Denies nausea and Denies vomiting Integumentary/Breasts: Skin/Breast: Denies pruritus, Denies erythema and Denies rash Neurologic: Denies vertigo, Denies dizziness and Denies syncope Endocrine: Endocrine: Denies polydipsia and Denies polyuria Hematologic/Lymphatic: Hematologic/Lymphatic: Denies easy bleeding and Denies easy bruising Allergic/Immunologic: Allergic/Immunologic: Denies lip swelling and Denies wheezing PMFSH Past Medical History Medical History Abdominal pain of unknown etiology Acute dehydration Anxiety Arm fracture, right Asthma Carpal tunnel syndrome of right wrist Depression Diabetes Fibromyalgia Foot fracture, right Gastroenteritis and colitis, viral Hypertension Impaired hydration Intractable nausea and vomiting Left nephrolithiasis PCOS (polycystic ovarian syndrome) PTSD (post-traumatic stress disorder) Renal disease Sleep apnea Type II diabetes mellitus UTI (urinary tract infection) Surgical History Surgical History Gastric bypass status for obesity (~12/2018) Lovely-en-Y at [facility] December this H/O: hysterectomy (~2015) History of carpal tunnel surgery (~2017) History of cholecystectomy (~2009) History of release of tendon (~2016) Bilate
[2020-06-02 14:44] LABS: Add Urine Microscopic? YES; Appearance Urine Clear (Clear); Bilirubin Urine Negative (Negative); Blood Urine Negative (Negative); Color Urine Yellow (Yellow); Glucose Urine UA Negative (Negative); Ketones Urine Trace (Negative); Leukocyte Esterase Ur Negative (Negative); Nitrate Urine Negative (Negative); Protein Urine Negative (Negative)
[2020-06-02 14:48] LABS: Bacteria Urine Trace /hpf; RBC Urine 0-2 /hpf (0-2); Squamous Epithelial Cell Urine Few /hpf (Few); WBC Urine 0-3 /hpf (0-3)
== END 2020-06-02 14:45 | disposition home or self-care (01) ==
PROVIDERS: Emergency Provider Emergency Medicine
DX: L02.91 Cutaneous abscess, unspecified (principal)
CPT/HCPCS: 81001; 87086; 99283

== ENCOUNTER 2021-02-07 10:53 | Emergency (ER) | payer OTHER, SELFPAY ==
[2021-02-07 11:05] VITALS: BP 115/64; PULSE 101; RESP 20; TEMP 36.9; O2SAT 100
--- NOTE | 2021-02-07 11:20 | ED.GENADULT ---
HPI - General Adult General Chief complaint: Allergic Reaction Stated complaint: Swelling rash Source: patient Mode of arrival: ambulatory Limitations: no limitations History of Present Illness HPI narrative: Nava is a 36F with a PMH of HTN, carpal tunnel, PTSD, anxiety, gastric bypass, sleep apnea, diabetes, depression and history of anaphylaxis that presented to the ED with an itchy rash. She started using epoxy last week while doing crafts. Since that time she has had a raised maculopapular rash that is very itchy. She became concerned today as it spread to her face and her lips swelled. No CP, SOB, wheezing, nausea, vomiting or diarrhea endorsed. Related Data Home Medications Medication Instructions Recorded Confirmed lorazepam 1 mg PO DAILY PRN 09/24/19 02/07/21 escitalopram oxalate [Lexapro] 20 mg PO DAILY 09/26/19 02/07/21 mecobalamin (vitamin B12) 2,000 mcg SUBLINGUAL DAILY 10/31/19 02/07/21 gabapentin 100 mg PO TID 06/02/20 02/07/21 prazosin 2 mg PO DAILY 06/02/20 02/07/21 sumatriptan succinate 25 mg PO PRN 06/02/20 02/07/21 Allergies Allergy/AdvReac Type Severity Reaction Status Date / Time Fish Containing Products Allergy Severe Anaphylactic Verified 06/02/20 14:18 Shock shellfish derived Allergy Severe Anaphylactic Verified 06/02/20 14:18 Shock ciprofloxacin Allergy Intermediate Hives Verified 06/02/20 14:18 fluoxetine Allergy Intermediate Hives Verified 06/02/20 14:18 morphine Allergy Intermediate Hives Verified 06/02/20 14:18 ceftriaxone Allergy Unknown HIVES Verified 06/02/20 14:18 ketorolac Allergy Unknown Rash Verified 06/02/20 14:18 iohexol Allergy Hives Verified 06/02/20 14:18 [From CONTRAST - CT, XRAY] NSAIDS (Non-Steroidal AdvReac Mild Other Verified 06/02/20 14:18 Anti-Inflamma Review of Systems Constitutional: Constitutional: Reports no additional constitutional complaints, Denies chills and Denies fever(s) Eyes: Eyes: Reports no additional eye complaints ENT: Reports system reviewed and no additional complaints, except as documented Cardiovascular: Cardiovascular: Reports no additional cardiovascular complaints Respiratory: Respiratory: Reports no additional respiratory complaints Gastrointestinal: Gastrointestinal: Reports no additional gastrointestinal complaints Genitourinary: Genitourinary: Reports no additional female genitourinary complaints Musculoskeletal: Musculoskeletal: Reports no additional musculoskeletal complaints Integumentary/Breasts: Skin/Breast: Reports as per HPI Neurologic: Reports system reviewed and no additional complaints, except as documented Psychiatric: Psychiatric: Reports no additional psychiatric complaints Endocrine: Endocrine: Reports no additional endocrine complaints Hematologic/Lymphatic: Hematologic/Lymphatic: Reports no additional hematologic/lymphatic complaints Allergic/Immunologic: Allergic/Immunologic: Reports no additional allergic/immunologic complaints [facility] Past Medical History Medical History (Updated 02/07/21 @ 11:29 by Mitchell Laura DO) Abdominal pain of unknown etiology Acute dehydration Anxiety Arm fracture, right Asthma Carpal tunnel syndrome of right wrist Depression Diabetes Fibromyalgia Foot fracture, right Gastroenteritis and colitis, viral Hypertension Impaired hydration Intractable nausea and vomiting Left nephrolithiasis PCOS (polycystic ovarian syndrome) PTSD (post-traumatic stress disorder) Renal disease Sleep apnea Type II diabetes mellitus UTI (urinary tract infection) Surgical History Surgical History Gastric bypass status for obesity (~12/2018) [facility] at [facility] December of this [id number] H/O: hysterectomy (~2015) History of carpal tunnel surgery (~2017) History of cholecystectomy (~2009) History of release of tendon (~2016) Bilateral Tendon/Ligament Release; Plantar Faschiotomy 2017 S/P tendon repair (~
[2021-02-07] MEDS: diphenhydrAMINE HCl INJ 50 MG/ML VIAL 25 MG IM (11:22)
[2021-02-07] MEDS: predniSONE 20 MG TABLET 40 MG PO (11:22)
[2021-02-07 11:47] VITALS: RESP 20
== END 2021-02-07 11:51 | disposition home or self-care (01) ==
PROVIDERS: Emergency Provider Family Medicine; PCP Family Medicine
DX: L25.9 Unspecified contact dermatitis, unspecified cause (principal)
CPT/HCPCS: 96372; 99283; J1200; J7512

== ENCOUNTER 2021-03-02 16:00 | Emergency (ER) | payer OTHER, SELFPAY ==
[2021-03-02 16:05] VITALS: BP 145/99; PULSE 85; RESP 16; TEMP 36.9; O2SAT 98
--- NOTE | 2021-03-02 16:18 | ED.EAR ---
HPI - Ear Problem General Chief complaint: Ear Stated complaint: trouble hearing Source: patient and RN notes reviewed Mode of arrival: ambulatory Limitations: no limitations History of Present Illness HPI Narrative: Patient states she uses Q-tips to trying clean out ear wax. She denies any bloody discharge. Complaint: decreased hearing Duration: constant Severity: moderate Relieving factors: nothing Exacerbating factors: nothing Discharge from ear: Reports no Treatment prior to arrival: none Related Data Home Medications Medication Instructions Recorded Confirmed lorazepam 1 mg PO DAILY PRN 09/24/19 02/07/21 escitalopram oxalate [Lexapro] 20 mg PO DAILY 09/26/19 02/07/21 mecobalamin (vitamin B12) 2,000 mcg SUBLINGUAL DAILY 10/31/19 02/07/21 gabapentin 100 mg PO TID 06/02/20 02/07/21 prazosin 2 mg PO DAILY 06/02/20 02/07/21 sumatriptan succinate 25 mg PO PRN 06/02/20 02/07/21 Allergies Allergy/AdvReac Type Severity Reaction Status Date / Time Fish Containing Products Allergy Severe Anaphylactic Verified 06/02/20 14:18 Shock shellfish derived Allergy Severe Anaphylactic Verified 06/02/20 14:18 Shock ciprofloxacin Allergy Intermediate Hives Verified 06/02/20 14:18 fluoxetine Allergy Intermediate Hives Verified 06/02/20 14:18 morphine Allergy Intermediate Hives Verified 06/02/20 14:18 ceftriaxone Allergy Unknown HIVES Verified 06/02/20 14:18 ketorolac Allergy Unknown Rash Verified 06/02/20 14:18 iohexol Allergy Hives Verified 06/02/20 14:18 [From CONTRAST - CT, XRAY] NSAIDS (Non-Steroidal AdvReac Mild Other Verified 06/02/20 14:18 Anti-Inflamma Review of Systems Review of Systems: All systems reviewed & are unremarkable except as noted in HPI and below PMFSH Past Medical History Medical History (Updated 03/02/21 @ 16:55 by Travis Baum MD) Abdominal pain of unknown etiology Acute dehydration Anxiety Arm fracture, right Asthma Carpal tunnel syndrome of right wrist Depression Diabetes Fibromyalgia Foot fracture, right Gastroenteritis and colitis, viral Hypertension Impaired hydration Intractable nausea and vomiting Left nephrolithiasis PCOS (polycystic ovarian syndrome) PTSD (post-traumatic stress disorder) Renal disease Sleep apnea Type II diabetes mellitus UTI (urinary tract infection) Surgical History Surgical History Gastric bypass status for obesity (~12/2018) [facility]Y at [facility] December this H/O: hysterectomy (~2015) History of carpal tunnel surgery (~2017) History of cholecystectomy (~2009) History of release of tendon (~2016) Bilateral Tendon/Ligament Release; Plantar Faschiotomy 2016 S/P tendon repair (~2010) Left Middle Finger Tendon Repair 2010 Family History Family History Father Cerebrovascular accident Hypertension Mother Diabetes mellitus Hypertension Depression Anxiety Cerebrovascular accident Acute myocardial infarction Sibling Diabetes mellitus Hypertension Kidney disease Grandparent Diabetes mellitus Social History Social History Social History: Lives with transgender Chloe. Chloe is her durable power commonwealth attorney for healthcare. The patient does need herself as a full code. Years smoked: 12 Smoking status: Former smoker Tobacco type: cigarettes Second hand tobacco smoke exposure: Yes Smoking end date: 09/05/07 Alcohol intake: current Drinks per week: 1 Substance use: former Substance use type: marijuana Last use: years ago when she was 16 Additional occupation/education comments: [employer] worker Gender identity (if verbalized by the patient): Female Spiritual care concerns: No Agree to blood products: Yes Exam Const: General: healthy appearing and no acute distress Nutritional Appeara
== END 2021-03-02 17:05 | disposition home or self-care (01) ==
PROVIDERS: Emergency Provider Emergency Medicine; PCP Family Medicine
DX: H61.21 Impacted cerumen, right ear (principal)
CPT/HCPCS: 99281

== ENCOUNTER 2021-03-13 08:21 | Emergency (ER) | payer OTHER, SELFPAY ==
--- NOTE | ~2021-03-13 | CT_ITS ---
EXAMINATION: CT BRAIN W/O DATE: 03/13/2021 08:59 INDICATION: Head injury. Headache. TECHNIQUE: Computed tomography (CT) of the head was performed without intravenous contrast. The dose- length product was 605.33 mGy-cm. Automated exposure control and iterative reconstruction technique w ere employed. COMPARISON: No prior studies for comparison. FINDINGS: Normal brain parenchymal volume for age. Normal bowens-white differentiation. No acute intrac ranial hemorrhage, infarction, mass or mass effect. No ventriculomegaly or midline shift. Midline sagittal images demonstrate a normal corpus callosum, c raniovertebral junction and sella turcica. Basilar cisterns are patent. There is mild left frontal sc alp swelling. Paranasal sinuses and mastoids are pneumatized. No depressed skull fractures. IMPRESSION: 1. No acute intracranial abnormality. Reviewed, dictated and finalized at location A.
--- NOTE | 2021-03-13 08:25 | ED.HEATRA ---
HPI - Head Injury General Chief complaint: Head Injury Stated complaint: FALL, HEAD INJURY Time Seen by Provider: 03/13/21 08:25 History of Present Illness HPI Narrative: 36 yo female presents to the ED after a head injury. She reports that for the past few days she has been having tire shop mechanic dizziness and frequent headaches throughout the day. Today when she got up she reports having a near syncopal episode and striking her head. She sustained a small laceration to the left forehead. She now has a severe headache, nausea, and dizziness. She does report being under increased stress recently. No fever, chills, confusion, abdominal pain. Related Data Home Medications Medication Instructions Recorded Confirmed lorazepam 1 mg PO DAILY PRN 09/24/19 02/07/21 mecobalamin (vitamin B12) 2,000 mcg SUBLINGUAL DAILY 10/31/19 02/07/21 gabapentin 100 mg PO TID 06/02/20 02/07/21 prazosin 2 mg PO DAILY 06/02/20 02/07/21 sumatriptan succinate 25 mg PO PRN 06/02/20 02/07/21 phentermine mg 03/13/21 topiramate 50 mg PO BID 03/13/21 03/13/21 Allergies Allergy/AdvReac Type Severity Reaction Status Date / Time Fish Containing Products Allergy Severe Anaphylactic Verified 03/13/21 08:44 Shock shellfish derived Allergy Severe Anaphylactic Verified 03/13/21 08:44 Shock ciprofloxacin Allergy Intermediate Hives Verified 03/13/21 08:44 fluoxetine Allergy Intermediate Hives Verified 03/13/21 08:44 morphine Allergy Intermediate Hives Verified 03/13/21 08:44 ceftriaxone Allergy Unknown HIVES Verified 03/13/21 08:44 ketorolac Allergy Unknown Rash Verified 03/13/21 08:44 iohexol Allergy Hives Verified 03/13/21 08:44 [From CONTRAST - CT, XRAY] NSAIDS (Non-Steroidal AdvReac Mild Other Verified 03/13/21 08:44 Anti-Inflamma Review of Systems Review of Systems: All systems reviewed & are unremarkable except as noted in HPI and below Constitutional: Constitutional: Denies chills and Denies fever(s) Eyes: Eyes: Reports no additional eye complaints ENT: Reports dizziness Cardiovascular: Cardiovascular: Denies chest pain Respiratory: Respiratory: Reports dyspnea Gastrointestinal: Gastrointestinal: Denies abdominal pain and Reports nausea Genitourinary: Genitourinary: Reports no additional female genitourinary complaints Musculoskeletal: Musculoskeletal: Denies back pain Neurologic: Denies syncope, Reports headache(s) and Denies weakness PMFSH Past Medical History Medical History Abdominal pain of unknown etiology Acute dehydration Anxiety Arm fracture, right Asthma Carpal tunnel syndrome of right wrist Depression Diabetes Fibromyalgia Foot fracture, right Gastroenteritis and colitis, viral Hypertension Impaired hydration Intractable nausea and vomiting Left nephrolithiasis PCOS (polycystic ovarian syndrome) PTSD (post-traumatic stress disorder) Renal disease Sleep apnea Type II diabetes mellitus UTI (urinary tract infection) Surgical History Surgical History Gastric bypass status for obesity (~12/2018) [facility] at [facility] December of this H/O: hysterectomy (~2015) History of carpal tunnel surgery (~2017) History of cholecystectomy (~2009) History of release of tendon (~2016) Bilateral Tendon/Ligament Release; Plantar Faschiotomy 2017 S/P tendon repair (~2010) Left Middle Finger Tendon Repair 2010 Family History Family History Father Cerebrovascular accident Hypertension Mother Diabetes mellitus Hypertension Depression Anxiety Cerebrovascular accident Acute myocardial infarction Sibling Diabetes mellitus Hypertension Kidney disease Grandparent Diabetes mellitus Social History Social History Social History: Lives with transgender
[2021-03-13 08:35] VITALS: BP 118/64; PULSE 93; RESP 18; TEMP 37.1; O2SAT 98
--- NOTE | 2021-03-13 08:37 | ECG_ITS ---
Measurements Intervals [place] Rate: 86 P: 44 CA: 174 QRS: 24 QRSD: 93 T: 21 QT: 363 QTc: 435 Interpretive Statements SINUS RHYTHM BASELINE WANDER- I, III NORMAL ECG Electronically Signed On 03-13-2021 8:54:35 CDT by Meng Prieto D.O.
[2021-03-13 08:42] VITALS: BP 114/61; PULSE 82
[2021-03-13 08:43] VITALS: BP 130/82; BP 139/81; PULSE 103; PULSE 95
[2021-03-13 09:00] LABS: Basophils Absolute Auto 0.1 K/mm3 (0.0-0.1); Basophils Percent Auto 0.6 % (0.2-1.2); Eosinophils Absolute Auto 0.1 K/mm3 (0-0.3); Eosinophils Percent Auto 0.9 % (0-4.4); Hematocrit 44.7 % (37.0-47.0); Hemoglobin 14.8 g/dL (12.0-15.0); Immature Granulocyte Absolute 0.04 K/mm3 (0.00-0.031); Immature Granulocyte Percent A 0.4 % (0-0.5); Lymphocytes Absolute Auto 1.96 K/mm3 (0.9-3.2); Lymphocytes Percent Auto 21.8 % (18.3-44.2); Mean Corpuscular HGB Conc 33.1 g/dl (32-36); Mean Corpuscular Hemoglobin 30.3 pg (26-34); Mean Corpuscular Volume 91.4 fl (80-100); Mean Platelet Volume 10.3 fl (7.4-10.4); Monocytes Absolute Auto 0.9 K/mm3 (0.1-0.6); Monocytes Percent Auto 9.6 % (2.6-8.5); Neutrophils Percent Auto 66.7 % (45.5-73.1); Platelet Count Result 320 k/mm3 (150-375); Red Blood Count 4.89 M/mm3 (4.2-5.4); Red Cell Distribution Width 12.6 % (11.5-14.5)
[2021-03-13 09:10] LABS: Alanine Aminotransferase 20 U/L (4-35); Albumin Level 4.1 g/dL (3.5-5.1); Alkaline Phosphatase 72 U/L (38-126); Anion Gap 3 mmol/L (8-16); Aspartate Amino Transferase 27 U/L (14-36); Bilirubin,Total 0.5 mg/dL (0.2-1.3); Blood Urea Nitrogen 9 mg/dL (7-17); Calcium 9.2 mg/dL (8.4-10.2); Carbon Dioxide 29 mmol/L (22-30); Chloride 107 mmol/L (98-107); Estimated CRCL calculation 126 ml/min; Estimated Glomerular Filt Rate > 60; Glucose 98 mg/dL (65-105); Potassium 3.8 mmol/L (3.4-5.0); Sodium 139 mmol/L (137-145)
[2021-03-13] MEDS: SODIUM CHLORIDE 0.9% IV 1,000 ML 999 ML IV CONT (09:16)
[2021-03-13] MEDS: METOCLOPRAMIDE HCL INJ 10 MG/2 ML VIAL IV PUSH (09:16)
[2021-03-13] MEDS: HYDROcodone/acetaminophen (*CRX) 5-325 MG TABLET 1 TAB PO (09:16)
--- NOTE | 2021-03-13 09:32 | PC.NURSE ---
Pt ambulatory to the restroom at this time
[2021-03-13 10:29] VITALS: BP 106/58; PULSE 68; RESP 18; O2SAT 95
== END 2021-03-13 10:43 | disposition home or self-care (01) ==
PROVIDERS: Emergency Provider Emergency Medicine; PCP Family Medicine
DX: S01.81XA Laceration without foreign body of other part of head, initial encounter (principal); J45.909 Unspecified asthma, uncomplicated; E11.9 Type 2 diabetes mellitus without complications; I10 Essential (primary) hypertension; M79.7 Fibromyalgia; F32.9 Major depressive disorder, single episode, unspecified; F41.9 Anxiety disorder, unspecified; F43.10 Post-traumatic stress disorder, unspecified; G47.30 Sleep apnea, unspecified; Z87.440 Personal history of urinary (tract) infections; Z87.442 Personal history of urinary calculi; Z98.84 Bariatric surgery status; Z87.891 Personal history of nicotine dependence; W01.190A Fall on same level from slipping, tripping and stumbling with subsequent striking against furniture, initial encounter
CPT/HCPCS: 12011; 36415; 70450; 80053; 85025; 93005; 96361; 96374; 99284; A9270; J2765; J7030

== ENCOUNTER 2022-04-15 16:21 | Emergency (ER) | payer OTHER, SELFPAY ==
[2022-04-15 16:30] VITALS: BP 119/72; PULSE 102; RESP 20; TEMP 36.8; O2SAT 95
--- NOTE | 2022-04-15 16:48 | ED.GENADULT ---
HPI - General Adult General Chief complaint: Skin/Abscess/Foreign Body Stated complaint: possible tick bite History of Present Illness HPI narrative: Nava presented to the ED with concerns of a tick bite. She was bit yesterday but the tick did not come off until this morning. It now it tender, itches and has surrounding erythema. There are no fevers, chills, N/v or systemic symptoms noted. Related Data Allergies Allergy/AdvReac Type Severity Reaction Status Date / Time Fish Containing Products Allergy Severe Anaphylactic Verified 04/15/22 16:54 Shock shellfish derived Allergy Severe Anaphylactic Verified 04/15/22 16:54 Shock ciprofloxacin Allergy Intermediate Hives Verified 04/15/22 16:54 fluoxetine Allergy Intermediate Hives Verified 04/15/22 16:54 morphine Allergy Intermediate Hives Verified 04/15/22 16:54 ceftriaxone Allergy Unknown HIVES Verified 04/15/22 16:54 ketorolac Allergy Unknown Rash Verified 04/15/22 16:54 iohexol Allergy Hives Verified 04/15/22 16:54 [From CONTRAST - CT, XRAY] NSAIDS (Non-Steroidal AdvReac Mild Other Verified 04/15/22 16:54 Anti-Inflamma Review of Systems Review of Systems: All systems reviewed & are unremarkable except as noted in HPI and below PMFSH Past Medical History Medical History Abdominal pain of unknown etiology Acute dehydration Anxiety Arm fracture, right Asthma Carpal tunnel syndrome of right wrist Depression Diabetes Fibromyalgia Foot fracture, right Gastroenteritis and colitis, viral Hypertension Impaired hydration Intractable nausea and vomiting Left nephrolithiasis PCOS (polycystic ovarian syndrome) PTSD (post-traumatic stress disorder) Renal disease Sleep apnea Type II diabetes mellitus UTI (urinary tract infection) Surgical History Surgical History Gastric bypass status for obesity (~12/2018) Lovely-[facility]-Y at [facility] December this H/O: hysterectomy (~2015) History of carpal tunnel surgery (~2017) History of cholecystectomy (~2009) History of release of tendon (~2016) Bilateral Tendon/Ligament Release; Plantar Faschiotomy 2016 S/P tendon repair (~2010) Left Middle Finger Tendon Repair 2010 Family History Family History Father Cerebrovascular accident Hypertension Mother Diabetes mellitus Hypertension Depression Anxiety Cerebrovascular accident Acute myocardial infarction Sibling Diabetes mellitus Hypertension Kidney disease Grandparent Diabetes mellitus Social History Social History Social History: Lives with transgender Chloe. Chloe is her durable power equine dentist for healthcare. The patient does need herself as a full code. 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 Gender identity (if verbalized by the patient): Female Spiritual care concerns: No Agree to blood products: Yes Exam Const: General: healthy appearing Nutritional Appearance: obese Orientation/consciousness: patient oriented x3 HENMT: Head: normal to inspection Ears: external ears normal General nose exam: Normal external nose present Face and sinus: normal facial exam Mouth: Yes Normal oral and palatal mucosa present Eyes: Conjunctivae: conjunctivae normal Pupils: Equal, round and reactive pupils present EOM: EOMs intact bilaterally Neck: Neck: normal visual inspection Chest: Chest palpation & inspection: normal inspection of the
== END 2022-04-15 16:59 | disposition home or self-care (01) ==
PROVIDERS: Emergency Provider Family Medicine; PCP Family Medicine
DX: T14.8XXA Other injury of unspecified body region, initial encounter (principal); W57.XXXA Bitten or stung by nonvenomous insect and other nonvenomous arthropods, initial encounter
CPT/HCPCS: 99283

== ENCOUNTER 2022-08-19 06:40 | Emergency (ER) | payer OTHER, SELFPAY ==
--- NOTE | ~2022-08-19 | CT_ITS ---
EXAMINATION: CT abdomen pelvis wo con DATE: 08/19/2022 08:15 INDICATION: Right flank pain. TECHNIQUE: Computed tomography (CT) of the abdomen and pelvis was performed without intravenous contr ast. Automated exposure control and iterative reconstruction technique were employed. The dose-length product was 1372.36 mGy-cm. COMPARISON: CT abdomen pelvis 10/31/19 FINDINGS: The visualized portions of the lung bases are clear without pneumonia or pleural effusion. The heart size is normal. No pericardial effusion. There is a 4.1 cm mass in right hepatic lobe with imaging features of a hemangioma on the prior CT. There is a 7 mm cyst in the liver. There are change s of cholecystectomy. There are surgical changes of the stomach. The spleen, pancreas, adrenal glands , and kidneys are normal. There is no urolithiasis. There are no dilated loops of bowel. The appendix is normal. There are no pathologically enlarged lymph nodes. There is no free intraperitoneal fluid. There is mild thoracolumbar spondylosis. There is a benign bone island in T10 vertebral body. IMPRESSION: 1. No etiology for the patient's symptoms. Reviewed, dictated and finalized at location A.
--- NOTE | 2022-08-19 07:05 | ED.FEMALEGU ---
HPI - Female Genitourinary General Chief complaint: Urogenital-Female Stated complaint: right flank/groin pain Time Seen by Provider: 08/19/22 06:49 History of Present Illness HPI Narrative: 37-year-old female with history of kidney stones presenting the emergency department for evaluation of right flank and right lower quadrant pain for which the patient feels is consistent with her prior stones. Patient states about 4 days ago she was having some pain in her right flank. Patient states this morning the pain went down to her right lower quadrant and does radiate down to her vagina. Patient reports that she has been having urgency symptoms but denies any pain with urination. Patient reports she has had approximately 6 stones, to have needed lithotripsy with most recent lithotripsy being about 2 years ago. Patient suspects this was at [facility] but is unsure. Patient's most recent stone was about 2 months ago. She was able to pass this 1 at home. Related Data Allergies Allergy/AdvReac Type Severity Reaction Status Date / Time Fish Containing Products Allergy Severe Anaphylactic Verified 08/19/22 07:19 Shock shellfish derived Allergy Severe Anaphylactic Verified 08/19/22 07:19 Shock ciprofloxacin Allergy Intermediate Hives Verified 08/19/22 07:19 fluoxetine Allergy Intermediate Hives Verified 08/19/22 07:19 morphine Allergy Intermediate Hives Verified 08/19/22 07:19 ceftriaxone Allergy Unknown HIVES Verified 08/19/22 07:19 ketorolac Allergy Unknown Rash Verified 08/19/22 07:19 iohexol Allergy Hives Verified 08/19/22 07:19 [From CONTRAST - CT, XRAY] NSAIDS (Non-Steroidal AdvReac Mild Other Verified 08/19/22 07:19 Anti-Inflamma Review of Systems Review of Systems: CONSTITUTIONAL: Denies fever, chills, or sweats. EYES: Denies visual changes, redness, or discharge. ENT: Denies rhinorrhea, congestion, sore throat, or otalgia. CARDIOVASCULAR: Denies chest pain, palpitations, or edema. RESPIRATORY: Denies cough or dyspnea. GASTROINTESTINAL: Denies abdominal pain, nausea, vomiting, or diarrhea. GENITOURINARY: See HPI SKIN: Denies rash or itching. MUSCULOSKELETAL: Denies back pain, joint pain, or myalgia. NEUROLOGIC: Denies headache, numbness, or weakness. [facility] Past Medical History Medical History (Updated 10/14/22 @ 10:51 by Cristian Reeder MD) Abdominal pain of unknown etiology Acute dehydration Anxiety Arm fracture, right Asthma Carpal tunnel syndrome of right wrist Depression Diabetes Fibromyalgia Foot fracture, right Gastroenteritis and colitis, viral Hypertension Impaired hydration Intractable nausea and vomiting Left nephrolithiasis PCOS (polycystic ovarian syndrome) PTSD (post-traumatic stress disorder) Renal disease Sleep apnea Type II diabetes mellitus UTI (urinary tract infection) Surgical History Surgical History Gastric bypass status for obesity (~12/2018) Lovely-[facility]-Y at [facility] December of this H/O: hysterectomy (~2015) History of carpal tunnel surgery (~2017) History of cholecystectomy (~2009) History of release of tendon (~2016) Bilateral Tendon/Ligament Release; Plantar Faschiotomy 2016 S/P tendon repair (~2010) Left Middle Finger Tendon Repair 2010 Family History Family History Father Cerebrovascular accident Hypertension Mother Diabetes mellitus Hypertension Depression Anxiety Cerebrovascular accident Acute myocardial infarction Sibling Diabetes mellitus Hypertension Kidney disease Grandparent Diabetes mellitus Social History Social History Social History: Lives with transgender Chloe. 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 The patient does need herself as a full code. Years smoked: 12 Smoking status: Former smoker Tobacco type: cigar
[2022-08-19 07:06] VITALS: BP 154/90; PULSE 84; RESP 18; O2SAT 100
[2022-08-19 07:18] VITALS: BP 154/90; PULSE 84; RESP 16; O2SAT 100
[2022-08-19] MEDS: fentaNYL CITRATE INJ (*CRX) 100 MCG/2 ML VIAL 50 MCG IV PUSH (07:20)
[2022-08-19] MEDS: SODIUM CHLORIDE 0.9% IV 1,000 ML 500 ML IV CONT (07:20)
[2022-08-19] MEDS: ONDANSETRON INJ 4 MG/2 ML VIAL IV PUSH (07:20)
[2022-08-19 07:30] LABS: Add Urine Microscopic? YES; Amorphous Sediment Urine Few; Appearance Urine Cloudy (Clear); Bacteria Urine Trace /hpf; Bilirubin Urine Negative (Negative); Blood Urine Negative (Negative); Color Urine Yellow (Yellow); Glucose Urine UA Negative (Negative); Ketones Urine Negative (Negative); Leukocyte Esterase Ur Negative LEU/UL (Negative); Nitrate Urine Negative (Negative); Protein Urine Negative (Negative); Specific Grav Ur 1.023 (1.001-1.035); Squamous Epithelial Cell Urine Few /hpf (Few)
[2022-08-19 08:24] VITALS: BP 120/61; PULSE 71; RESP 16; O2SAT 98
[2022-08-19] MEDS: NITROFURANTOIN MONOHYD MACROCR 100 MG CAP PO (09:42)
== END 2022-08-19 09:50 | disposition home or self-care (01) ==
PROVIDERS: Emergency Provider Emergency Medicine; PCP Family Medicine
DX: R10.9 Unspecified abdominal pain (principal); R31.9 Hematuria, unspecified; J45.909 Unspecified asthma, uncomplicated; E11.9 Type 2 diabetes mellitus without complications; I10 Essential (primary) hypertension; M79.7 Fibromyalgia; E28.2 Polycystic ovarian syndrome; G47.30 Sleep apnea, unspecified; N28.9 Disorder of kidney and ureter, unspecified; Z87.442 Personal history of urinary calculi; Z87.440 Personal history of urinary (tract) infections; Z98.84 Bariatric surgery status; Z90.710 Acquired absence of both cervix and uterus; Z87.891 Personal history of nicotine dependence
CPT/HCPCS: 74176; 81001; 81025; 96361; 96374; 96375; 99284; A9270; J2405; J3010; J7030

== ENCOUNTER 2023-03-23 17:22 | Emergency (ER) | payer OTHER, SELFPAY ==
--- NOTE | ~2023-03-23 | XR_ITS ---
EXAMINATION: XR hand RT min 3V DATE: 03/23/2023 18:01 INDICATION: Right hand injury and origin with hematoma to the base of the third-fifth digits TECHNIQUE: Posteroanterior, oblique and lateral views of the right hand were obtained. COMPARISON: None. FINDINGS: Alignment is normal. No fracture. Joint spaces are normal. Soft tissues are unremarkable. IMPRESSION: 1. . Negative right hand radiographs. Reviewed, dictated and finalized at location A.
[2023-03-23 17:24] VITALS: BP 134/89; PULSE 98; TEMP 36.9; O2SAT 100
[2023-03-23 17:32] VITALS: BP 137/89; PULSE 98; RESP 17; TEMP 36.9; O2SAT 100
--- NOTE | 2023-03-23 18:14 | ED.UPPEXIN ---
HPI - Extremity Injury (Upper) General Chief Complaint: Extremity Injury, Upper Stated Complaint: smashed hand in door Time Seen by Provider: 03/23/23 17:41 Source: patient Mode of arrival: ambulatory Limitations: no limitations History of Present Illness HPI narrative: this is a 30 old female with swelling and bruising to her right hand after she smashed it in the door locked at home has good range of motion in her fingers with no numbness or tingling there is some swelling and bruising with strong brisk radial pulses have good range of motion although tender because of pain and inflammation. complaint: injury to: right Onset (ago): hour(s) Other Extremity Injury: Right: hand ( Swelling and bruising) Other injuries: none Handedness: right Place: home Severity: moderate Severity scale (1-10): 4 Relieving factors: cold therapy Exacerbating factors: immobilization Context: direct blow Related Data Home Medications Medication Instructions Recorded Confirmed methylphenidate HCl 10 mg tablet 10 mg PO BID 03/23/23 03/23/23 sumatriptan succinate 100 mg tablet 100 mg PO BID 03/23/23 03/23/23 topiramate 100 mg tablet 100 mg PO DAILY 03/23/23 03/23/23 Allergies Allergy/AdvReac Type Severity Reaction Status Date / Time Fish Containing Products Allergy Severe Anaphylactic Verified 03/23/23 17:30 Shock shellfish derived Allergy Severe Anaphylactic Verified 03/23/23 17:30 Shock ciprofloxacin Allergy Intermediate Hives Verified 03/23/23 17:30 fluoxetine Allergy Intermediate Hives Verified 03/23/23 17:30 morphine Allergy Intermediate Hives Verified 03/23/23 17:30 ceftriaxone Allergy Unknown HIVES Verified 03/23/23 17:30 ketorolac Allergy Unknown Rash Verified 03/23/23 17:30 iohexol Allergy Hives Verified 03/23/23 17:30 [From CONTRAST - CT, XRAY] NSAIDS (Non-Steroidal AdvReac Mild Other Verified 03/23/23 17:30 Anti-Inflamma Review of Systems Review of Systems: All systems reviewed & are unremarkable except as noted in HPI and below PMFSH Past Medical History Medical History (Updated 03/23/23 @ 18:17 by Bronson Cadena MD) Abdominal pain of unknown etiology Acute dehydration Anxiety Arm fracture, right Asthma Carpal tunnel syndrome of right wrist Depression Diabetes Fibromyalgia Foot fracture, right Gastroenteritis and colitis, viral Hypertension Impaired hydration Intractable nausea and vomiting Left nephrolithiasis PCOS (polycystic ovarian syndrome) PTSD (post-traumatic stress disorder) Renal disease Sleep apnea Type II diabetes mellitus UTI (urinary tract infection) Surgical History Surgical History Gastric bypass status for obesity (~12/2018) [facility]Y at [facility] December this H/O: hysterectomy (~2015) History of carpal tunnel surgery (~2017) History of cholecystectomy (~2009) History of release of tendon (~2016) Bilateral Tendon/Ligament Release; Plantar Faschiotomy 2016 S/P tendon repair (~2010) Left Middle Finger Tendon Repair 2010 Family History Family History Father Cerebrovascular accident Hypertension Mother Diabetes mellitus Hypertension Depression Anxiety Cerebrovascular accident Acute myocardial infarction Sibling Diabetes mellitus Hypertension Kidney disease Grandparent Diabetes mellitus Social History Social History Social History: Lives with transgender Chloe. Chloe is her durable power insurance defense attorney for healthcare. The patient does need herself as a full code. Years smoked: 12 Smoking status: Former smoker Tobacco type: cigarettes Second hand tobacco smoke exposure: Yes Smoking end date: 09/05/07 Alcohol intake: current Drinks per week: 1 Alcohol use details: Fire ball a week Substance use: former Substance use type: marijuana
[2023-03-23 18:27] VITALS: BP 132/85; PULSE 87; RESP 16; TEMP 36.9; O2SAT 100
== END 2023-03-23 18:28 | disposition home or self-care (01) ==
PROVIDERS: Emergency Provider Emergency Medicine
DX: S63.91XA Sprain of unspecified part of right wrist and hand, initial encounter (principal); I10 Essential (primary) hypertension; E11.9 Type 2 diabetes mellitus without complications; Z87.891 Personal history of nicotine dependence; W23.0XXA Caught, crushed, jammed, or pinched between moving objects, initial encounter; Y92.009 Unspecified place in unspecified non-institutional (private) residence as the place of occurrence of the external cause
CPT/HCPCS: 73130; 99283

== ENCOUNTER 2023-05-14 13:42 | Emergency (ER) | payer OTHER, SELFPAY ==
--- NOTE | ~2023-05-14 | CT_ITS ---
EXAMINATION: CT abdomen pelvis wo con DATE: 05/14/2023 14:08 INDICATION: Left flank pain. TECHNIQUE: Computed tomography (CT) of the abdomen and pelvis was performed without intravenous contr ast. Automated exposure control and iterative reconstruction technique were employed. The dose-length product was 493.44 mGy-cm. COMPARISON: CT abdomen and pelvis 08/19/2022, 10/31/2019 FINDINGS: The visualized portions of the lung bases are clear without pneumonia or pleural effusion. The heart size is normal. No pericardial effusion. There is a 4.1 cm mass in the liver with features of a hemangioma on a prior CT. There is a 7 mm cyst in the liver. The spleen and pancreas are normal. There are changes of cholecystectomy. There are changes of gastric bypass procedure. The adrenal gla nds and right kidney are normal. There is a 2 mm stone in left kidney. There are no dilated loops of bowel. The appendix is normal. There are no pathologically enlarged lymph nodes. There is no free int raperitoneal fluid. There is mild thoracolumbar spondylosis. IMPRESSION: 1. Small nonobstructing left kidney stone. Reviewed, dictated and finalized at location A.
[2023-05-14 13:54] VITALS: BP 130/76; PULSE 102; RESP 20; TEMP 36.6; O2SAT 100
[2023-05-14 14:13] VITALS: BP 132/80; PULSE 89; RESP 20; TEMP 36.6; O2SAT 99
--- NOTE | 2023-05-14 14:25 | ED.GENADULT ---
HPI - General Adult General Chief complaint: Urogenital-Female Stated complaint: L flank pain Time Seen by Provider: 05/14/23 13:49 Source: patient Mode of arrival: ambulatory Limitations: no limitations History of Present Illness HPI narrative: 38-year-old white female with history kidney stones and complains of left flank pain started 4 days ago and then started having urinary 6 frequency 3 days ago. She rates her pain as a 7/10. She has a little bit of nausea last night was worse she did not throw up denies any diaphoresis or diarrhea. Denies any burning with urination she feels like this might be kidney stone or bladder infection. Denies any bleeding or bruising rash or itching lumps or bumps or swelling problems eating or drinking or stooling. Denies any cough shortness of breath fever runny nose. Denies any other pain besides her left for flank pain that radiates to her left groin. Past medical history kidney stones. Past surgical history gastric bypass she has lost 150 lb she no longer has diabetes or hypertension she stay as she is healthier than she ever has been. Related Data Home Medications Medication Instructions Recorded Confirmed methylphenidate HCl 10 mg tablet 10 mg PO BID 03/23/23 05/14/23 topiramate 100 mg tablet (Topamax) 100 mg PO DAILY 03/23/23 05/14/23 cyclobenzaprine 5 mg tablet 5 mg PO DAILY 05/14/23 05/14/23 terbinafine HCl 250 mg tablet See Rx Instructions .Route .COMPLEX 05/14/23 05/14/23 Allergies Allergy/AdvReac Type Severity Reaction Status Date / Time Fish Containing Products Allergy Severe Anaphylactic Verified 05/14/23 14:02 Shock shellfish derived Allergy Severe Anaphylactic Verified 05/14/23 14:02 Shock ciprofloxacin Allergy Intermediate Hives Verified 05/14/23 14:02 fluoxetine Allergy Intermediate Hives Verified 05/14/23 14:02 morphine Allergy Intermediate Hives Verified 05/14/23 14:02 ceftriaxone Allergy Unknown HIVES Verified 05/14/23 14:02 ketorolac Allergy Unknown Rash Verified 05/14/23 14:02 iohexol Allergy Hives Verified 05/14/23 14:02 [From CONTRAST - CT, XRAY] NSAIDS (Non-Steroidal AdvReac Mild Other Verified 05/14/23 14:02 Anti-Inflamma Review of Systems Review of Systems: All systems reviewed & are unremarkable except as noted in HPI and below PMFSH Past Medical History Medical History Abdominal pain of unknown etiology Acute dehydration Anxiety Arm fracture, right Asthma Carpal tunnel syndrome of right wrist Depression Diabetes Fibromyalgia Foot fracture, right Gastroenteritis and colitis, viral Hypertension Impaired hydration Intractable nausea and vomiting Left nephrolithiasis PCOS (polycystic ovarian syndrome) PTSD (post-traumatic stress disorder) Renal disease Sleep apnea Type II diabetes mellitus UTI (urinary tract infection) Surgical History Surgical History Gastric bypass status for obesity (~12/2018) [facility] at [facility] December this H/O: hysterectomy (~2015) History of carpal tunnel surgery (~2017) History of cholecystectomy (~2009) History of release of tendon (~2016) Bilateral Tendon/Ligament Release; Plantar Faschiotomy 2016 S/P tendon repair (~2010) Left Middle Finger Tendon Repair 2010 Family History Family History Father Cerebrovascular accident Hypertension Mother Diabetes mellitus Hypertension Depression Anxiety Cerebrovascular accident Acute myocardial infarction Sibling Diabetes mellitus Hypertension Kidney disease Grandparent Diabetes mellitus Social History Social History Social History: Lives with transgender Chloe. Chloe is her durable power deputy county attorney for healthcare. The patient does need herself as a full code. Years smoked
[2023-05-14 14:45] LABS: Appearance Urine Clear (Clear); Bilirubin Urine Negative (Negative); Blood Urine 1+ (Negative); Color Urine Light Yellow (Yellow); Glucose Urine UA Negative (Negative); Ketones Urine Negative (Negative); Leukocyte Esterase Ur Negative LEU/UL (Negative); Nitrate Urine Negative (Negative); Protein Urine Negative (Negative); Specific Grav Ur >= 1.030 (1.010-1.020); Urobilinogen Urine 0.2 mg/dL (0.2-1.0)
[2023-05-14] MEDS: ONDANSETRON INJ 4 MG/2 ML VIAL IV PUSH (14:49)
[2023-05-14] MEDS: HYDROcodone/acetaminophen (*CRX) 5-325 MG TABLET 1 TAB PO (14:49)
[2023-05-14 15:02] LABS: Hematocrit 43.8 % (35.0-49.0); Hemoglobin 14.6 g/dL (12.0-15.0); Mean Corpuscular HGB Conc 33.3 g/dL (32.0-36.0); Mean Corpuscular Hemoglobin 30.3 pg (27.0-31.0); Mean Corpuscular Volume 90.9 fL (78.0-102.0); Mean Platelet Volume 9.7 fl (9.2-11.8); Platelet Count Result 307 K/mm3 (150-420); Red Blood Count 4.82 M/mm3 (4.20-5.40); Red Cell Distribution Width 12.3 % (11.6-14.4); White Blood Count 10.5 K/mm3 (4.8-10.8)
[2023-05-14 15:05] LABS: Add Urine Microscopic? YES; Amorphous Sediment Urine Few; Bacteria Urine 1+ /hpf; Mucus Urine Few /lpf; Squamous Epithelial Cell Urine Few /hpf (Few)
[2023-05-14 15:17] LABS: Alanine Aminotransferase 22 U/L (14-59); Albumin Level 3.6 g/dL (3.4-5.0); Alkaline Phosphatase 89 U/L (46-116); Anion Gap 7 mmol/L (8-16); Aspartate Amino Transferase 12 U/L (15-37); Bilirubin,Total 0.3 mg/dL (0.00-1.00); Blood Urea Nitrogen 13 mg/dL (7-18); Calcium 8.7 mg/dL (8.5-10.1); Carbon Dioxide 30 mmol/L (21-32); Chloride 105 mmol/L (98-108); Estimated CRCL calculation 109 ml/min; Estimated Glomerular Filt Rate > 60; Glucose 94 mg/dL (70-99); Lipase 28 U/L (16-77); Osmolality Calculated 294 mOsm/kg (285-295); Sodium 142 mmol/L (136-145)
[2023-05-14 16:00] VITALS: BP 128/72; PULSE 79; RESP 20; O2SAT 98
[2023-05-14 17:47] VITALS: BP 142/80; PULSE 82; RESP 20; TEMP 36.7; O2SAT 98
== END 2023-05-14 17:58 | disposition home or self-care (01) ==
PROVIDERS: Emergency Provider Emergency Medicine
DX: N20.0 Calculus of kidney (principal); E11.9 Type 2 diabetes mellitus without complications; I10 Essential (primary) hypertension; Z87.891 Personal history of nicotine dependence
CPT/HCPCS: 36415; 74176; 80053; 81001; 83690; 85027; 96374; 99284; A9270; J2405

== ENCOUNTER 2023-05-24 07:23 | Emergency (ER) | payer OTHER, SELFPAY ==
--- NOTE | ~2023-05-24 | CT_ITS ---
EXAMINATION: CT abdomen pelvis wo con DATE: 05/24/2023 08:23 INDICATION: Right flank pain. Dysuria. TECHNIQUE: Computed tomography (CT) of the abdomen and pelvis was performed without intravenous contr ast. Automated exposure control and iterative reconstruction technique were employed. The dose-length product was 505.19 mGy-cm. COMPARISON: CT abdomen and pelvis 05/14/2023 FINDINGS: The visualized portions of the lung bases are clear without pneumonia or pleural effusion. The heart size is normal. No pericardial effusion. There is a 4.1 cm mass in the liver with features of a hemangioma or prior CT. There is a 7 mm cyst in the liver. The spleen and pancreas are normal. T here are changes of gastric bypass procedure. There are changes of cholecystectomy. The adrenal gland s and right kidney are normal. There is a 3 mm stone in left kidney. There are no dilated loops of russell wel. The appendix is normal. There are no pathologically enlarged lymph nodes. There is no free intra peritoneal fluid. There is mild thoracolumbar spondylosis. IMPRESSION: 1. Small nonobstructing left kidney stone. Reviewed, dictated and finalized at location A.
[2023-05-24 07:27] VITALS: BP 129/71; PULSE 101; RESP 16; TEMP 36.8; O2SAT 100
[2023-05-24 07:31] VITALS: BP 129/77; PULSE 101; RESP 18; O2SAT 100
[2023-05-24] MEDS: SODIUM CHLORIDE 0.9% IV 1,000 ML 999 ML IV CONT (07:45)
[2023-05-24] MEDS: fentaNYL CITRATE INJ (*CRX) 100 MCG/2 ML VIAL 50 MCG IV PUSH (07:47)
[2023-05-24 07:57] LABS: Basophils Percent Auto 0.5 % (0.2-1.2); Eosinophils Absolute Auto 0.1 K/mm3 (0-0.3); Hematocrit 48.9 % (37.0-47.0); Hemoglobin 15.9 g/dL (12.0-15.0); Immature Granulocyte Absolute 0.04 K/mm3 (0.00-0.031); Immature Granulocyte Percent A 0.5 % (0-0.5); Lymphocytes Percent Auto 23.9 % (18.3-44.2); Mean Corpuscular HGB Conc 32.5 g/dl (32-36); Mean Corpuscular Hemoglobin 29.7 pg (26-34); Mean Corpuscular Volume 91.2 fl (80-100); Mean Platelet Volume 9.3 fl (7.4-10.4); Monocytes Absolute Auto 0.6 K/mm3 (0.1-0.6); Monocytes Percent Auto 7.1 % (2.6-8.5); Neutrophils Absolute Auto 5.6 K/mm3 (1.3-6.7); Platelet Count Result 349 k/mm3 (150-375); Red Blood Count 5.36 M/mm3 (4.2-5.4); Red Cell Distribution Width 12.7 % (11.5-14.5); White Blood Count 8.4 K/mm3 (4.5-10.0)
[2023-05-24 07:59] LABS: Appearance Urine Cloudy (Clear); Bacteria Urine None Seen /hpf; Bilirubin Urine Negative (Negative); Blood Urine Negative (Negative); Color Urine Yellow (Yellow); Glucose Urine UA Negative (Negative); Ketones Urine Negative (Negative); Leukocyte Esterase Ur Negative LEU/UL (Negative); Nitrate Urine Negative (Negative); Non Pathogenic Casts 0-2; Protein Urine Negative (Negative); Specific Grav Ur 1.016 (1.001-1.035); Squamous Epithelial Cell Urine None seen /hpf (Few); WBC Urine 0-5 /hpf
[2023-05-24 08:08] LABS: Alanine Aminotransferase 34 U/L (6-35); Albumin Level 4.5 g/dL (3.5-5.1); Alkaline Phosphatase 81 U/L (38-126); Anion Gap 4 mmol/L (8-16); Aspartate Amino Transferase 34 U/L (14-36); Bilirubin,Total 0.5 mg/dL (0.2-1.3); Blood Urea Nitrogen 9 mg/dL (7-17); Calcium 9.2 mg/dL (8.4-10.2); Carbon Dioxide 34 mmol/L (22-30); Chloride 101 mmol/L (98-107); Estimated CRCL calculation 119 ml/min; Estimated Glomerular Filt Rate > 60; Glucose 91 mg/dL (65-110); Potassium 3.7 mmol/L (3.4-5.0); Sodium 139 mmol/L (137-145)
[2023-05-24 09:30] VITALS: PULSE 83; RESP 19; O2SAT 100
--- NOTE | 2023-05-24 10:03 | ED.ABDPAIN ---
HPI - Abdominal Pain General Chief Complaint: Abdominal Pain Stated Complaint: Pain rt quad Time Seen by Provider: 05/24/23 07:27 History of Present Illness HPI narrative: Patient is a 38-year-old female who presents ER with right-sided abdominal pain. Began last night. Radiates towards the back. Aching and cramping in nature. No nausea or vomiting. Reports she has had some dysuria and urinary frequency over the last couple days. No fevers or chills or sweats. No hematuria. She has history of kidney stones. No alleviating factors at home. Related Data Home Medications Medication Instructions Recorded Confirmed methylphenidate HCl 10 mg tablet 10 mg PO BID 03/23/23 05/14/23 topiramate 100 mg tablet (Topamax) 100 mg PO DAILY 03/23/23 05/14/23 cyclobenzaprine 5 mg tablet 5 mg PO DAILY 05/14/23 05/14/23 terbinafine HCl 250 mg tablet See Rx Instructions .Route .COMPLEX 05/14/23 05/14/23 Allergies Allergy/AdvReac Type Severity Reaction Status Date / Time Fish Containing Products Allergy Severe Anaphylactic Verified 05/24/23 07:41 Shock shellfish derived Allergy Severe Anaphylactic Verified 05/24/23 07:41 Shock ciprofloxacin Allergy Intermediate Hives Verified 05/24/23 07:41 fluoxetine Allergy Intermediate Hives Verified 05/24/23 07:41 morphine Allergy Intermediate Hives Verified 05/24/23 07:41 ceftriaxone Allergy Unknown HIVES Verified 05/24/23 07:41 ketorolac Allergy Unknown Rash Verified 05/24/23 07:41 iohexol Allergy Hives Verified 05/24/23 07:41 [From CONTRAST - CT, XRAY] NSAIDS (Non-Steroidal AdvReac Mild Other Verified 05/24/23 07:41 Anti-Inflamma Review of Systems Review of Systems: All systems reviewed & are unremarkable except as noted in HPI and below Constitutional: Constitutional: Denies chills and Denies fever(s) ENT: Denies nasal congestion and Denies sore throat Cardiovascular: Cardiovascular: Denies chest pain, Denies rapid heart rate and Denies radiating jaw, neck or arm pain Respiratory: Respiratory: Denies cough and Denies dyspnea Gastrointestinal: Gastrointestinal: Reports abdominal pain, Denies nausea and Denies vomiting Genitourinary: Genitourinary: Denies hematuria, Reports nocturia, Reports dysuria and Denies flank pain PMFSH Past Medical History Medical History (Updated 05/24/23 @ 10:16 by Jesus Su MD) Abdominal pain of unknown etiology Acute dehydration Anxiety Arm fracture, right Asthma Carpal tunnel syndrome of right wrist Depression Diabetes Fibromyalgia Foot fracture, right Gastroenteritis and colitis, viral Hypertension Impaired hydration Intractable nausea and vomiting Left nephrolithiasis PCOS (polycystic ovarian syndrome) PTSD (post-traumatic stress disorder) Renal disease Sleep apnea Type II diabetes mellitus UTI (urinary tract infection) Surgical History Surgical History Gastric bypass status for obesity (~12/2018) [facility] at [facility] December this H/O: hysterectomy (~2015) History of carpal tunnel surgery (~2017) History of cholecystectomy (~2009) History of release of tendon (~2016) Bilateral Tendon/Ligament Release; Plantar Faschiotomy 2016 S/P tendon repair (~2010) Left Middle Finger Tendon Repair 2010 Family History Family History Father Cerebrovascular accident Hypertension Mother Diabetes mellitus Hypertension Depression Anxiety Cerebrovascular accident Acute myocardial infarction Sibling Diabetes mellitus Hypertension Kidney disease Grandparent Diabetes mellitus Social History Social History Social History: Lives with transgender Chloe. Chloe is her durable power cook apprentice pastry for healthcare. The patient does need herself as a full code. Years smoked: 12 Smoking status: Former smoker Tobacco
[2023-06-02 13:01] LABS: Add Urine Microscopic? YES
== END 2023-05-24 10:40 | disposition home or self-care (01) ==
PROVIDERS: Emergency Provider Emergency Medicine; PCP Family Medicine
DX: R10.9 Unspecified abdominal pain (principal); J45.909 Unspecified asthma, uncomplicated; E11.9 Type 2 diabetes mellitus without complications; I10 Essential (primary) hypertension; E28.2 Polycystic ovarian syndrome; N28.9 Disorder of kidney and ureter, unspecified; G47.30 Sleep apnea, unspecified; M79.7 Fibromyalgia; Z98.84 Bariatric surgery status; Z87.440 Personal history of urinary (tract) infections; Z87.442 Personal history of urinary calculi; Z90.710 Acquired absence of both cervix and uterus; Z90.49 Acquired absence of other specified parts of digestive tract; N20.0 Calculus of kidney
CPT/HCPCS: 36415; 74176; 80053; 81001; 81003; 85025; 96361; 96374; 99284; J3010; J7030

== ENCOUNTER 2024-01-31 18:45 | Emergency (ER) | payer OTHER, MEDICAID, SELFPAY ==
[2024-01-31 18:45] VITALS: BP 131/75; PULSE 88; RESP 16; TEMP 36.8; O2SAT 100
--- NOTE | 2024-01-31 18:52 | ED.EAR ---
HPI - Ear Problem General Chief complaint: Ear Stated complaint: right ear fullness Time Seen by Provider: 01/31/24 18:52 Source: patient Mode of arrival: ambulatory Limitations: no limitations History of Present Illness HPI Narrative: 38-year-old female with a history of anxiety / depression, fibromyalgia, hypertension, PCOS, PTSD, EBENEZER, diabetes mellitus presents to the ER with -- Right ear pain. She had pain 2 days ago following which she flushed her ear with water. Subsequently she has had worsening right ear pain. no ear discharge. No fever. MD Complaint: ear pain Location: right ear Duration: constant Severity: moderate Relieving factors: nothing Exacerbating factors: nothing Discharge from ear: Reports no Treatment prior to arrival: none Related Data Home Medications Medication Instructions Recorded Confirmed methylphenidate HCl 10 mg tablet 10 mg PO BID 03/23/23 01/31/24 Allergies Allergy/AdvReac Type Severity Reaction Status Date / Time Fish Containing Products Allergy Severe Anaphylactic Unverified 01/31/24 18:53 Shock shellfish derived Allergy Severe Anaphylactic Verified 01/31/24 18:53 Shock ciprofloxacin Allergy Intermediate Hives Unverified 01/31/24 18:53 fluoxetine Allergy Intermediate Hives Verified 01/31/24 18:53 morphine Allergy Intermediate Hives Verified 01/31/24 18:53 ceftriaxone Allergy Unknown HIVES Verified 01/31/24 18:53 ketorolac Allergy Unknown Rash Verified 01/31/24 18:53 iohexol Allergy Hives Verified 01/31/24 18:53 [From CONTRAST - CT, XRAY] NSAIDS (Non-Steroidal AdvReac Mild Other Verified 01/31/24 18:53 Anti-Inflamma Review of Systems Review of Systems: All systems reviewed & are unremarkable except as noted in HPI and below PMFSH Past Medical History Medical History (Updated 01/31/24 @ 19:04 by Ancelmo Mccurdy MD) Abdominal pain of unknown etiology Acute dehydration Anxiety Arm fracture, right Asthma Carpal tunnel syndrome of right wrist Depression Diabetes Fibromyalgia Foot fracture, right Gastroenteritis and colitis, viral Hypertension Impaired hydration Intractable nausea and vomiting Left nephrolithiasis PCOS (polycystic ovarian syndrome) PTSD (post-traumatic stress disorder) Renal disease Sleep apnea Type II diabetes mellitus UTI (urinary tract infection) Surgical History Surgical History Gastric bypass status for obesity (~12/2018) [facility] at [facility] December H/O: hysterectomy (~2015) History of carpal tunnel surgery (~2017) History of cholecystectomy (~2009) History of release of tendon (~2016) Bilateral Tendon/Ligament Release; Plantar Faschiotomy 2017 S/P tendon repair (~2010) Left Middle Finger Tendon Repair 2010 Family History Family History Father Cerebrovascular accident Hypertension Mother Diabetes mellitus Hypertension Depression Anxiety Cerebrovascular accident Acute myocardial infarction Sibling Diabetes mellitus Hypertension Kidney disease Grandparent Diabetes mellitus Social History Social History Social History: Lives with transgender Chloe. Chloe is her durable power immigration attorney for healthcare. The patient does need herself as a full code. 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
[2024-01-31 18:54] VITALS: BP 131/75; PULSE 88; RESP 16; TEMP 36.8; O2SAT 100
[2024-01-31 19:34] VITALS: BP 114/75; PULSE 88; RESP 18; TEMP 36.6; O2SAT 98
== END 2024-01-31 19:34 | disposition home or self-care (01) ==
LOC: CHSED 19:19
PROVIDERS: Emergency Provider Internal Medicine Critical Care Medicine
DX: H60.331 Swimmer's ear, right ear (principal); H61.21 Impacted cerumen, right ear
CPT/HCPCS: 99283